=== PATIENT | female | born 1985 | race Caucasian/White ===

== ENCOUNTER 2023-01-08 22:55 | Inpatient (IN) | payer OTHER, SELFPAY ==
--- NOTE | ~2023-01-08 | XR_ITS ---
EXAMINATION: XR HAND, LEFT CLINICAL INFORMATION: Trauma, rule out foreign body COMPARISON: None available. TECHNIQUE: PA, lateral, and oblique views of the left hand. FINDINGS: The bones and soft tissues are normal. No fracture. Alignment is anatomic. Joint spaces are maintained. No erosions or soft tissue calcifications. XR/XR hand LT min 3V IMPRESSION: Normal left hand. No radiopaque foreign body.
[2023-01-08 23:15] VITALS: BP 162/96; PULSE 75; RESP 18; TEMP 36.3; O2SAT 97
[2023-01-09] MEDS: traZODone HCL 50 MG TABLET PO ×2 (00:25→01:47)
[2023-01-09] MEDS: cephALEXin 500 MG CAPSULE PO ×3 (00:26→17:55)
[2023-01-09] MEDS: hydrOXYzine HCL 25 MG TABLET PO (00:26)
[2023-01-09 00:53] LABS: Estimated Glomerular Filt Rate > 60
--- NOTE | 2023-01-09 01:05 | PC.ADMIT ---
PT is a 37 year old female admitted at 2310 from [facility] ED on CV. PT attempted to end her life by cutting her L wrist with a returned materials inspector knife resulting in a 6cm laceration with injury to tendons and nerves with 7 sutures. No redness or S/S of infection, with a volar splint and arnie bandage. PT placed on 5 minute checks due to bandage, PT denies SI/HI at this time. VSS, PT expressing mild anxiety and depression. PT according to report got really angry with her mom and had been drinking when she cut self. PT expresses guilt for cutting self. PT recently started drinking and had been sober for 13 years. PT reports she was on suboxone but has not taken in several days. PT BAL 151 upon admission to [facility], ALT 100, AST 60. PT reports increasing sadness and depression over past few weeks. PT has hx of HTN. PT signed legals, initial treatment plan and safety tool started. PT needs follow up apt with Dr Merlos of hand surgery within a week. PT is resting in bed with eyes closed on 5 minute safety checks.
[2023-01-09 01:43] VITALS: BMI 33.3
[2023-01-09] MEDS: Acetaminophen 325 MG TABLET 650 MG PO (06:57)
--- NOTE | 2023-01-09 08:00 | ECG_ITS ---
Test Reason : check qtc Blood Pressure : / mmHG Vent. Rate : 081 BPM Atrial Rate : 081 BPM P-R Int : 148 ms QRS Dur : 074 ms QT Int : 378 ms P-R-T Axes : 020 -22 003 degrees QTc Int : 439 ms Normal sinus rhythm Minimal voltage criteria for LVH, may be normal variant ( R in aVL ) Borderline ECG No previous ECGs available Referred By: Sola Cook Electronically Signed By:REINALDO REESE MD
[2023-01-09 08:38] LABS: Cholesterol 279 mg/dL; HDL Cholesterol 45 mg/dL; LDL Cholesterol Calculated 200 mg/dl; Magnesium 1.9 mg/dL (1.6-2.6); Triglycerides 174 mg/dL
[2023-01-09 08:45] LABS: Estimated Average Glucose 82 mg/dL; Hemoglobin A1c % 4.5 %
[2023-01-09 09:07] LABS: Folate 11.3 ng/mL (> or = 4.0); Free T4 (Free Thyroxine) 0.93 ng/dL (0.71-1.85); Thyroid Stimulating Hormone 1.42 uIU/mL (0.32-4.0); Vitamin B12 449 pg/mL (200-900)
[2023-01-09] MEDS: Nicotine Polacrilex Lozenge 4 MG LOZENGE BUCCAL (10:14)
[2023-01-09] MEDS: Nicotine 21 MG PATCH.TD24 TRANSDERMA (10:14)
[2023-01-09 12:55] VITALS: BP 154/86; RESP 16; TEMP 36.6
[2023-01-09] MEDS: Folic Acid 1 MG TABLET PO (12:57)
[2023-01-09] MEDS: amLODIPine Besylate 5 MG TABLET PO (12:57)
[2023-01-09] MEDS: Thiamine HCL 100 MG TABLET 50 MG PO (12:57)
[2023-01-09] MEDS: Labetalol HCL 100 MG TABLET PO (12:57)
[2023-01-09] MEDS: oxyCODONE HCl Immed Release 5 MG TABLET PO ×2 (12:58→15:26)
[2023-01-09] MEDS: TiZANidine HCL 4 MG TABLET PO ×3 (12:58→23:06)
--- NOTE | 2023-01-09 13:00 | HO.PSYADMNOT ---
Documented by User: Maria Del Rosario Nieves NP 01/09/23 16:21 HPI Date of Service: 01/09/23 Chief Complaint: Depression, Suicide attempt, alcohol use disorder Sources of Information: patient interviewed, chart reviewed and crisis/core team assessment reviewed HPI Subjective Notes: Angelo Warning and Conditional Voluntary Narrative: Patient is a 37 year old female who self presented to [facility] ED secondary to attempting to ending her life by cutting her wrists. According to the crisis report, she has a 6cm LAC on left wrist with injury to the tendon and nerve requiring 7 sutures. Per crisis evaluation, patient became upset with mother, stated she wanted to and took a knife then cut her left wrist. EMS was called. Patient expresses guilt about cutting herself and states she was intoxicated during the event and does not recall what occurred. Patient denies any current thoughts of self harm or suicidal ideation. Past Psychiatric History: This is the patients first inpatient behavioral health admission. Patient reports having providers at [facility]. She has received treatment in the past for ETOH and opiate use. Patient reports no history of past self harm or suicide attempts. [facility] Medical History (Updated 01/09/23 @ 16:21 by Tim Orellana MD) Alcohol use disorder MDD (major depressive disorder), recurrent episode Opioid use disorder Narrative: This is the patients first inpatient behavioral health admission. Patient reports having providers at [facility]. Patient states she has tried multiple medications but they are not helped my depression . Patient reports no history of past self harm or suicide attempts. Family History: No family history of mental illness. Social History: Lives with and 2 cats. Has not been working since 2018. Substance History: Rehab in 2010 for ETOH, Opiate use in 2021 for 2 months. Started drinking again 2 weeks ago. Trauma History: None Diagnostics Vital Signs (24Hr): Vital Signs - 24 hr 01/08/23 23:15 Temperature 97.4 F Pulse Rate 75 Respiratory Rate 18 Blood Pressure 162/96 H Pulse Oximetry 97 Oxygen Delivery Method Room Air BMI result Body Mass Index 33.3 Labs 01/09/23 00:14 Labs: Laboratory Results - last 48 hr 01/09/23 01/09/23 01/09/23 00:14 08:02 08:02 Creatinine 0.82 Estim Creat Clear Calc TNP Estimated GFR > 60 Estimat Average Glucose 82 Hemoglobin A1c % 4.5 Magnesium 1.9 Triglycerides 174 Cholesterol 279 LDL Cholesterol, Calc 200 HDL Cholesterol 45 Vitamin B12 449 Folate 11.3 TSH 1.42 Free T4 0.93 EKG EKG: reviewed Meds/Allergies Meds Home Medications Medication Instructions Recorded Confirmed Type amlodipine 5 mg tablet 5 mg PO DAILY 01/09/23 01/09/23 History escitalopram oxalate 20 mg tablet 20 mg PO QAM 01/09/23 01/09/23 History hydromorphone 2 mg tablet 2 mg PO Q8H PRN pain 01/09/23 01/09/23 History labetalol 100 mg tablet 100 mg PO BID 01/09/23 01/09/23 History lorazepam 0.5 mg tablet 0.5 mg PO BID PRN Anxiety 01/09/23 01/09/23 History tizanidine 4 mg tablet 4 mg PO TID 01/09/23 01/09/23 History Allergies Allergies Allergy/AdvReac Type Severity Reaction Status Date / Time baclofen Allergy Unknown Unknown Verified 01/08/23 17:27 Sulfa (Sulfonamide Allergy Unknown Unknown Verified 01/08/23 17:27 Antibiotics) trimethoprim Allergy Unknown Unknown Verified 01/08/23 17:27 amoxicillin Allergy Unknown Unknown Uncoded 01/08/23 17:27 pcn Allergy Unknown Unknown Uncoded 01/08/23 17:27 Mental Status Exam Mental Status Exam Narrative: Pt is alert and oriented; behavior is cooperative, friendly and calm; patient is not in distress; dressed in casual attire; mood is described as okay and affect congruent; eye contact appropriate; Speech is normal rate, volume and prosody and not pressured; no psychomotor agitation/retardation present; thought process is organized and goal directed; Thought content is on tx; otherwise pertinent to relevant topics and without any delusional content, paranoid ideations or grandiosity; denies any SI/HI. There is no evidence of perceptual disturbance. Patients insight and judgment appear fair. Assessment & Plan Assessment & Plan (1) MDD (major depressive disorder), recurrent episode: Status: Acute Code(s): F33.9 - Major depressive disorder, recurrent, unspecified (2) Alcohol use disorder: Status: Acute Code(s): F10.90 - Alcohol use, unspecified, uncomplicated (3) Opioid use disorder: Status: Acute Code(s): F11.90 - Opioid use, unspecified, uncomplicated (4) Laceration of wrist, left: Status: Acute Code(s): S61.512A - Laceration without foreign body of left wrist, initial encounter Plan CV 5 min checks d/t bandage on left arm STARTing CIWA Thiamine 50mg PO daily Folic acid 1mg PO daily Consult put in for Orthopedics to examine left wrist. Tylenol 1000mg PO TID PRN for pain Oxycodone IR PO Q6hr PRN for pain Continue home medications: Norvasc 5mg PO daily Zanaflex 4mg PO TID Labetalol 100mg PO BID Ativan 0.5mg PO BID PRN Lexapro 20mg PO daily 01/09: Reviewed in team. Continued on home medications. Patient reports her outpatient provider had just started her on Lexapro 20mg daily. Patient to be seen for orthopedic consult. Patient educated on: medication risk/benefits and therapeutic strategies Informed Consent: understands Reason for continued inpatient stay Substantial Risk for: harm to self and med/psych decompensation Statement Statement: I have reviewed the history and physical and performed a pertinent examination on my patient. No changes have occurred unless specified. If the History and Physical was not performed prior to admission, the Hospitalist's service will be consulted for completing the admission physical. Time Spent With Patient Time: Total time managing care of this patient today ____ minutes. Documented by User: Tim Orellana MD 01/09/23 16:41 HPI Chief Complaint: Depression, Suicide attempt, alcohol use disorder HPI Narrative: Patient is a 37 year old female with a pmh of depression, alcohol abuse/dependence, opioid abuse/dependence (on Suboxone) who presented to [facility] ED following self-inflicted, severe left wrist laceration in face of intoxication, argument with mother, and in the context of making suicidal statements (per mother).? Patient reports reports she overall has a moderate level of depression but typically is able to cope; most medication trials have not helped.? Patient reports she has been sober for the past 12 years but relapsed 2 weeks ago out of boredom and continued chronic moderate depression.? Patient says she does not remember many details about the incident other than she was arguing with her mother and that she cut her wrist; at this time she does not remember having any suicidal thoughts or or making any suicidal comments.? However she says she regrets doing it and is glad that she is okay.? Conversely, at the emergency room, her mother reported that patient intentionally cut her wrist saying God does not want me here... God wanted me to go I want to go to my [] father... Patient denies any history of manic type episodes or behaviors other than intermittent bouts of insomnia (but without any associated manic behaviors); patient denies any history of trauma; denies any past history of self-harm at all or suicidal thinking.? She is open to medication management. Past Psychiatric History: This is the patients first inpatient behavioral health admission. Patient reports having providers at [facility]. She has received treatment in the past for ETOH and opiate use. Patient reports no history of past self harm or suicide attempts. Med trials: Wellbutrin Lamictal Zoloft Trazodone Geodon Topamax Medical Evaluation Reviewed: Hospitalist Fede Pending Per [facility] ED, she has a 6cm LAC on left wrist with injury to the tendon and nerve requiring 7 sutures. [facility] Medical History (Updated 01/09/23 @ 16:21 by Tim Orellana MD) Alcohol use disorder MDD (major depressive disorder), recurrent episode Opioid use disorder Diagnostics Labs 01/09/23 00:14 Meds/Allergies Meds Home Medications Medication Instructions Recorded Confirmed Type amlodipine 5 mg tablet 5 mg PO DAILY 01/09/23 01/09/23 History escitalopram oxalate 20 mg tablet 20 mg PO QAM 01/09/23 01/09/23 History hydromorphone 2 mg tablet 2 mg PO Q8H PRN pain 01/09/23 01/09/23 History labetalol 100 mg tablet 100 mg PO BID 01/09/23 01/09/23 History lorazepam 0.5 mg tablet 0.5 mg PO BID PRN Anxiety 01/09/23 01/09/23 History tizanidine 4 mg tablet 4 mg PO TID 01/09/23 01/09/23 History Allergies Allergies Allergy/AdvReac Type Severity Reaction Status Date / Time baclofen Allergy Unknown Unknown Verified 01/08/23 17:27 Sulfa (Sulfonamide Allergy Unknown Unknown Verified 01/08/23 17:27 Antibiotics) trimethoprim Allergy Unknown Unknown Verified 01/08/23 17:27 amoxicillin Allergy Unknown Unknown Uncoded 01/08/23 17:27 pcn Allergy Unknown Unknown Uncoded 01/08/23 17:27 Mental Status Exam Mental Status Exam Narrative: Pt is alert and oriented; behavior is cooperative, friendly and calm; patient is not in distress; dressed in casual attire; mood is described as okay and affect congruent; eye contact appropriate; Speech is normal rate, volume and prosody and not pressured; no psychomotor agitation/retardation present; thought process is organized and goal directed; Thought content is on tx; otherwise pertinent to relevant topics and without any delusional content, paranoid ideations or grandiosity; denies any SI/HI. There is no evidence of perceptual disturbance. Patients insight and judgment impaired. Assessment & Plan Assessment & Plan (1) MDD (major depressive disorder), recurrent episode: Status: Acute Code(s): F33.9 - Major depressive disorder, recurrent, unspecified (2) Alcohol use disorder: Status: Acute Code(s): F10.90 - Alcohol use, unspecified, uncomplicated (3) Opioid use disorder: Status: Acute Code(s): F11.90 - Opioid use, unspecified, uncomplicated (4) Laceration of wrist, left: Status: Acute Code(s): S61.512A - Laceration without foreign body of left wrist, initial encounter Plan Patient is a 37 year old female with a pmh of depression, alcohol abuse/dependence, opioid abuse/dependence (on Suboxone) who presented to [facility] ED following self-inflicted, severe left wrist laceration in face of intoxication, argument with mother, and in the context of making suicidal statements (per mother).? -patient currently denies any SI; reports she does not remember making any suicidal comments or that she was severely depressed or suicidal prior to this event. Patient's mother says otherwise that patient made a distinct suicidal, before cutting her wrist. At this time will need collateral to better assess situation including clarifying psych history and diagnosis (was once diagnosed with bipolar disorder though currently patient denies such history). Patient gave verbal permission to discuss case with her and mother; voicemail left for . -at this time will continue with home medication recently started Lexapro -CIWA for EtOH withdrawal -patient was until recently on Suboxone 8/2 mg daily; was planning to get Sublicade since patient is now getting oxycodone for pain will not restart Suboxone at this time. May however taper off oxy and restart Suboxone PLAN: CV 5 min checks d/t bandage on left arm CIWA with prn ativan Thiamine 50mg PO daily Folic acid 1mg PO daily Continue home medications: Norvasc 5mg PO daily Zanaflex 4mg PO TID Labetalol 100mg PO BID Ativan 0.5mg PO BID PRN Lexapro 20mg PO daily (recently started) HOLD suboxone 8/2mg (pt currently treated with Oxy) Left Hand Lac: Per [facility] ED, she has a 6cm LAC on left wrist with injury to the tendon and nerve requiring 7 sutures. Pt continued on Keflex 500 mg q.6 3 to of 5 days prophylactically Patient has follow-up appointment with Dr. Mittal next week Tylenol 1000mg PO TID PRN for pain Oxycodone IR PO Q6hr PRN for pain ortho consulted placed ECG again reviewed labs from [facility] ED: WBC mildly elevated; otherwise, lytes, BUN/creatinine, AST/ALT WNL QTC: [address] [employer] Nurse discussed case with community health nursing director. and agree with treatment plan
--- NOTE | 2023-01-09 13:37 | PM.CNOR ---
History of Present Illness HPI Consult date: 01/09/23 Chief complaint: Depression, Suicide attempt, alcohol use disorder Narrative: 37 yo female admitted to the behavioral health unit due to self harm from cutting her wrist 3-4 days ago in an attempt to end her life. She states she was transported to [facility] ED for evaluation where the laceration was irrigated and sutured. She was placed in a splint . She was transferredt [facility] ED for admission to the psych unit and orthopedics was consulted for further recommendations to the left wrist laceration. Review of Systems Review of Systems: Per hpi. [facility] Social History Social History Household Members: Spouse Housing: Other Housing Other:: Duplex Patient Tobacco Use Status: Current everyday Tobacco user Tobacco use type: Cigarette e-Cigarette/Vaping Use: Currently Using Patient Interested in Nicotine Replacement: Yes Patient Given Instructions on How to Stop Smoking: No (PT refusing) Second Hand Smoke Exposure: No Use of substances other than those prescribed or required for medical reasons: No Last Used Substance: Unknown Currently Displaying Signs/Symptoms of Drug Intoxication Withdrawal: No Have you been hit, kicked, punched, or otherwise hurt by someone within the past year? If so, by whom?: No Do you feel safe in your current relationship?: Yes Is there a partner from a previous relationship who is making you feel unsafe now?: No Are you made to feel afraid or neglected: No Spiritual Healthcare Practices: Confucianist Orthodoxy Healthcare Practices: Confucianist Cultural Healthcare Practices: NONE Advance Directives: No Advance Directives Information Provided: Yes Do you have thoughts of harming others: None Do you have a plan to hurt others: No Plan Recently lost weight without trying: Unsure How much weight loss: Unsure Eating poorly because of decreased appetite: Yes Nutrition screen score: 5 Patient : No : No Poor oral hygiene: No Meds Allergies Allergy/AdvReac Type Severity Reaction Status Date / Time baclofen Allergy Unknown Unknown Verified 01/08/23 17:27 Sulfa (Sulfonamide Allergy Unknown Unknown Verified 01/08/23 17:27 Antibiotics) trimethoprim Allergy Unknown Unknown Verified 01/08/23 17:27 amoxicillin Allergy Unknown Unknown Uncoded 01/08/23 17:27 pcn Allergy Unknown Unknown Uncoded 01/08/23 17:27 Active Medications: Current Medications Acetaminophen (Acetaminophen 325 Mg Tablet) 650 mg PO Q6H PRN PRN Reason: Headache/Pain Mild Scale (1-3) Last Admin: 01/09/23 06:57 Dose: 650 mg Al Hydroxide/Mg Hydroxide (Magnesium Hydrox/Alum Hydrox 30 Ml Oral.Susp) 30 ml PO Q6H PRN PRN Reason: Heartburn/Nausea Amlodipine Besylate (Amlodipine Besylate 5 Mg Tablet) 5 mg PO DAILY [facility]; Protocol Last Admin: 01/09/23 12:57 Dose: 5 mg Cephalexin HCl (Cephalexin 500 Mg Capsule) 500 mg PO Q6H [facility] Last Admin: 01/09/23 13:00 Dose: Not Given Folic Acid (Folic Acid 1 Mg Tablet) 1 mg PO DAILY [facility] Last Admin: 01/09/23 12:57 Dose: 1 mg Hydroxyzine HCl (Hydroxyzine Hcl 25 Mg Tablet) 25 mg PO Q6H PRN PRN Reason: Anxiety Last Admin: 01/09/23 00:26 Dose: 25 mg Labetalol HCl (Labetalol Hcl 100 Mg Tablet) 100 mg PO BID [facility]; Protocol Last Admin: 01/09/23 12:57 Dose: 100 mg Lorazepam (Lorazepam 0.5 Mg Tablet) 0.5 mg PO BID PRN PRN Reason: Anxiety Magnesium Hydroxide (Milk Of Magnesia 30 Ml Oral.Susp) 30 ml PO DAILY PRN PRN Reason: Constipation Nicotine (Nicotine 21 Mg Patch.Td24) 21 mg TRANSDERMA DAILY [facility] Last Admin: 01/09/23 10:14 Dose: 21 mg Nicotine Polacrilex (Nicotine Polacrilex Lozenge 4 Mg Lozenge) 4 mg BUCCAL Q2H PRN PRN Reason: nicotine replacement Last Admin: 01/09/23 10:14 Dose: 4 mg Thiamine HCl (Thiamine Hcl 100 Mg Tablet) 50 mg PO DAILY [facility] Last Admin: 01/09/23 12:57 Dose: 50 mg Tizanidine HCl (Tizanidine Hcl 4 Mg Tablet) 4 mg PO TID [facility] Last Admin: 01/09/23 12:58 Dose: 4 mg Trazodone HCl (Trazodone Hcl 50 Mg Tablet) 50 mg PO BEDTIME MRX1 PRN PRN Reason: Insomnia Last Admin: 01/09/23 01:47 Dose: 50 mg Home Medications Medication Instructions Recorded Confirmed Last Taken Type amlodipine 5 mg tablet 5 mg PO DAILY 01/09/23 01/09/23 01/08/23 09:00 History escitalopram oxalate 20 mg tablet 20 mg PO QAM 01/09/23 01/09/23 01/08/23 09:00 History hydromorphone 2 mg tablet 2 mg PO Q8H PRN pain 01/09/23 01/09/23 01/08/23 23:00 History labetalol 100 mg tablet 100 mg PO BID 01/09/23 01/09/23 01/08/23 22:00 History lorazepam 0.5 mg tablet 0.5 mg PO BID PRN Anxiety 01/09/23 01/09/23 01/08/23 22:00 History tizanidine 4 mg tablet 4 mg PO TID 01/09/23 01/09/23 01/08/23 22:00 History Physical Exam Vital Signs: Vital Signs: Last Vital Signs Temp 97.4 F 01/08/23 23:15 Pulse 75 01/08/23 23:15 Resp 18 01/08/23 23:15 BP 162/96 H 01/08/23 23:15 Pulse Ox 97 01/08/23 23:15 O2 Del Method Room Air 01/08/23 23:15 BMI result Body Mass Index 33.3 Const: General: cooperative and no acute distress Orientation/consciousness: patient oriented x3 Resp: Effort & Inspection: normal respiratory effort and able to speak in complete sentences Cardio: Peripheral pulses: Peripheral pulses 2+ throughout Neuro: General: patient oriented x3 Results Labs 01/09/23 00:14 Labs: All other labs normal. Diagnostic results Wrist/Hand x-ray: image reviewed (xray of the left wrist/hand obtained today are negative for fracture or foreign body ) Assessment and Plan (1) Laceration of wrist, left: Status: Acute Plan I reviewed the case with Dr. Gillespie and this is something that would require surgical intervention to explore and repair. I explained the extent of the injury and options to the patient which includes exploration and possible repair of the left wrist median nerve and if there is injury to the tendons, this will need to be addressed as well. I did explain to her that this takes anywhere from 6-12 weeks to full recover from this as there needs to be a period of immobilization and then some potential physical therapy. I discussed with her the risks, benefits and alternatives to the procedure. Risks including, but not limited to infection, re-rupture of the tendon, stiffness, ongoing weakness and numbness. She does understand all this and would like to proceed with Left wrist exploration with possible nerve and tendon repair with Dr. Gillespie. She will be booked accordingly for 01/13/23, NPO after midnight Thursday. Time Spent With Patient Time: Total time managing care of this patient today ____ minutes. Procedures Date of Service Date of Service: 01/09/23
[2023-01-09] MEDS: LORazepam 0.5 MG TABLET PO ×2 (13:42→17:55)
[2023-01-09] MEDS: Acetaminophen 325 MG TABLET 1000 MG PO (15:26)
[2023-01-09] MEDS: Escitalopram Oxalate 20 MG TABLET PO (15:27)
--- NOTE | 2023-01-09 15:54 | P.CONHOSP_ITS ---
History of Present Illness Data of Consult Service Date: 01/09/23 <LINH Johansen - Last Filed: 01/10/23 14:10> Primary Care Provider: Darby Coon MD <LINH Johansen - Last Filed: 01/10/23 14:10> HPI Reason for consult: Admission H&P <LINH Johansen - Last Filed: 01/10/23 14:10> Pt is a 37-year-old female with a PMH significant for necrotizing pancr eatitis and abdominal compartment syndrome in 2011, cyclic vomiting syndrome, hepatic steatosis, depression, and alcohol and opioid use disorder who is admitted to psychiatry unit after recent suicide attempt where patient cut her left wrist with a knife after becoming upset with her mother. Medical consult for admission H&P. At [facility] patient had her left wrist laceration irrigated and sutured, and left wrist was placed in a volar splint. Patient has already been seen by ortho who plan on performing a surgical exploration on Thursday with possible repair to median nerve/tendon. Pt complains of severe 8/10 pain that is not well-controlled with her current analgesics. Patient has a history of cyclic vomiting syndrome with no history of marijuana use, likely secondary to patient's history of necrotizing pancreatitis and abdominal compartment syndrome. Patient states she currently gets intractable nausea and vomiting 2-3 times per month with last episode earlier in the week while she was at [facility]. Patient also complains of chronic left-sided abdominal pain that has been on-going for years. Patient denies fever, chills, nausea, vomiting, diarrhea. No chest pain/pressure, palpitations. Denies shortness of breath. <LINH Johansen - Last Filed: 01/10/23 14:10> Pt is a 37-year-old female with a PMH significant for necrotizing pancreatitis and abdominal compartment syndrome in 2011, cyclic vomiting syndrome, hepatic steatosis, depression, and alcohol and opioid use disorder who is admitted to psychiatry unit after recent suicide attempt where patient cut her left wrist with a knife after becoming upset with her mother. Medical consult for admission H&P. At [facility] patient had her left wrist laceration irrigated and sutured, and left wrist was placed in a volar splint. Patient has already been seen by ortho who plan on performing a surgical exploration on Thursday with possible repair to median nerve/tendon. Pt complains of severe 8/10 pain that is not well-controlled with her current analgesics. Patient has a history of cyclic vomiting syndrome with no history of marijuana use, likely secondary to patient's history of necrotizing pancreatitis and abdominal compartment syndrome in 2011. Patient states she currently gets intractable nausea and vomiting 2-3 times per month with last episode earlier in the week while she was at [facility]. Patient also complains of chronic left- sided abdominal pain that has been on-going for years. Patient denies fever, chills, nausea, vomiting, diarrhea. No chest pain/pressure, palpitations. Denies shortness of breath. <Emma Isbell MD - Last Filed: 01/10/23 14:35> Review of Systems Review of Systems: Severe left wrist pain Chronic left-sided abdominal pain Denies fever, chills, nausea, vomiting, diarrhea Denies chest pain/pressure, palpitations No shortness of breath <LINH Johansen - Last Filed: 01/10/23 14:10> Yes all other systems are reviewed and are negative <LINH Johansen - Last Filed: 01/10/23 14:10> [facility] Medical History: Medical History Alcohol use disorder MDD (major depressive disorder), recurrent episode Opioid use disorder Seizure <LINH Johansen - Last Filed: 01/10/23 14:10> Social History: Social History Household Members: Spouse Housing: Other Housing Other:: Duplex Patient Tobacco Use Status: Current everyday Tobacco user Tobacco use type: Cigarette e-Cigarette/Vaping Use: Currently Using Patient Interested in Nicotine Replacement: Yes Patient Given Instructions on How to Stop Smoking: No (PT refusing) Second Hand Smoke Exposure: No Use of substances other than those prescribed or required for medical reasons: No Last Used Substance: Unknown Currently Displaying Signs/Symptoms of Drug Intoxication Withdrawal: No Have you been hit, kicked, punched, or otherwise hurt by someone within the past year? If so, by whom?: No Do you feel safe in your current relationship?: Yes Is there a partner from a previous relationship who is making you feel unsafe now?: No Are you made to feel afraid or neglected: No Spiritual Healthcare Practices: Yazidism Voodoo Healthcare Practices: Yazidism Cultural Healthcare Practices: NONE Advance Directives: No Advance Directives Information Provided: Yes Do you have thoughts of harming others: None Do you have a plan to hurt others: No Plan Recently lost weight without trying: Unsure How much weight loss: Unsure Eating poorly because of decreased appetite: Yes Nutrition screen score: 5 Patient : No : No Poor oral hygiene: No service: No Sexual orientation: Straight/Heterosexual <LINH Johansen - Last Filed: 01/10/23 14:10> Meds Allergies/Adverse reactions: Allergies Allergy/AdvReac Type Severity Reaction Status Date / Time baclofen Allergy Unknown Unknown Verified 01/08/23 17:27 Sulfa (Sulfonamide Allergy Unknown Unknown Verified 01/08/23 17:27 Antibiotics) trimethoprim Allergy Unknown Unknown Verified 01/08/23 17:27 amoxicillin Allergy Unknown Unknown Uncoded 01/08/23 17:27 pcn Allergy Unknown Unknown Uncoded 01/08/23 17:27 <LINH Johansen - Last Filed: 01/10/23 14:10> Active Medications: Current Medications Acetaminophen (Acetaminophen 325 Mg Tablet) 1,000 mg PO TID PRN PRN Reason: Pain, Severe (Pain Scale 7-10) Last Admin: 01/09/23 15:26 Dose: 1,000 mg Al Hydroxide/Mg Hydroxide (Magnesium Hydrox/Alum Hydrox 30 Ml Oral.Susp) 30 ml PO Q6H PRN PRN Reason: Heartburn/Nausea Amlodipine Besylate (Amlodipine Besylate 5 Mg Tablet) 5 mg PO DAILY [facility]; Protocol Last Admin: 01/09/23 12:57 Dose: 5 mg Cephalexin HCl (Cephalexin 500 Mg Capsule) 500 mg PO Q6H MICHELLE Last Admin: 01/09/23 13:00 Dose: Not Given Escitalopram Oxalate (Escitalopram Oxalate 20 Mg Tablet) 20 mg PO DAILY [facility] Last Admin: 01/09/23 15:27 Dose: 20 mg Folic Acid (Folic Acid 1 Mg Tablet) 1 mg PO DAILY [facility] Last Admin: 01/09/23 12:57 Dose: 1 mg Hydroxyzine HCl (Hydroxyzine Hcl 25 Mg Tablet) 25 mg PO Q6H PRN PRN Reason: Anxiety Last Admin: 01/09/23 00:26 Dose: 25 mg Labetalol HCl (Labetalol Hcl 100 Mg Tablet) 100 mg PO BID [facility]; Protocol Last Admin: 01/09/23 12:57 Dose: 100 mg Lorazepam (Lorazepam 0.5 Mg Tablet) 0.5 mg PO BID PRN PRN Reason: Anxiety Last Admin: 01/09/23 13:42 Dose: 0.5 mg Magnesium Hydroxide (Milk Of Magnesia 30 Ml Oral.Susp) 30 ml PO DAILY PRN PRN Reason: Constipation Nicotine (Nicotine 21 Mg Patch.Td24) 21 mg TRANSDERMA DAILY [facility] Last Admin: 01/09/23 10:14 Dose: 21 mg Nicotine Polacrilex (Nicotine Polacrilex Lozenge 4 Mg Lozenge) 4 mg BUCCAL Q2H PRN PRN Reason: nicotine replacement Last Admin: 01/09/23 10:14 Dose: 4 mg Oxycodone HCl (Oxycodone Hcl Immed Release 5 Mg Tablet) 5 mg PO Q6H PRN PRN Reason: Pain, Severe (Pain Scale 7-10) Last Admin: 01/09/23 15:26 Dose: 5 mg Thiamine HCl (Thiamine Hcl 100 Mg Tablet) 50 mg PO DAILY [facility] Last Admin: 01/09/23 12:57 Dose: 50 mg Tizanidine HCl (Tizanidine Hcl 4 Mg Tablet) 4 mg PO TID [facility] Last Admin: 01/09/23 12:58 Dose: 4 mg Trazodone HCl (Trazodone Hcl 50 Mg Tablet) 50 mg PO BEDTIME MRX1 PRN PRN Reason: Insomnia Last Admin: 01/09/23 01:47 Dose: 50 mg Zolpidem Tartrate (Zolpidem Tartrate 5 Mg Tablet) 5 mg PO BEDTIME PRN PRN Reason: Insomnia <LINH Johansen - Last Filed: 01/10/23 14:10> Home medications: Home Medications Medication Instructions Recorded Confirmed Last Taken Type amlodipine 5 mg tablet 5 mg PO DAILY 01/09/23 01/09/23 01/08/23 09:00 History escitalopram oxalate 20 mg tablet 20 mg PO QAM 01/09/23 01/09/23 01/08/23 09:00 History hydromorphone 2 mg tablet 2 mg PO Q8H PRN pain 01/09/23 01/09/23 01/08/23 23:00 History labetalol 100 mg tablet 100 mg PO BID 01/09/23 01/09/23 01/08/23 22:00 History lorazepam 0.5 mg tablet 0.5 mg PO BID PRN Anxiety 01/09/23 01/09/23 01/08/23 22:00 History tizanidine 4 mg tablet 4 mg PO TID 01/09/23 01/09/23 01/08/23 22:00 History <LINH Johansen - Last Filed: 01/10/23 14:10> Physical Exam Vital Signs and Narrative: Vital Signs: Last Vital Signs Temp 98 F 01/09/23 12:55 Pulse 75 01/08/23 23:15 Resp 16 01/09/23 12:55 BP 154/86 H 01/09/23 12:55 Pulse Ox 97 01/08/23 23:15 O2 Del Method Room Air 01/08/23 23:15 BMI result Body Mass Index 33.3 <LINH Johansen - Last Filed: 01/10/23 14:10> Constitutional: Alert, in no acute distress. Mental Status: Oriented to person, place and time. Eyes: Pupils are equal, round, and reactive to light. Ear, Nose, and Throat: Oropharynx clear, mucous membranes moist. Ears and nose without deformities. Trachea midline. Respiratory: Clear to auscultation bilaterally. No wheezing, rales, or rhonchi. Cardiovascular: S1, S2 regular. No murmurs, rubs, or gallops. Gastrointestinal: Abdomen soft, non-tender, non-distended. Normal bowel sounds. Neurologic: Cranial nerves II-XII are grossly intact bilaterally. No focal neurological deficits. Moves all extremities spontaneously. 2/5 strength left upper extremity; 5/5 strength of right upper extremity and lower extremities bilaterally. Extremities: Volar splint on left wrist. No erythema noted of left hand. Psychiatric: Normal mood and affect. <LINH Johansen - Last Filed: 01/10/23 14:10> Results Labs CBC and Chem 7: 01/09/23 00:14 <LINH Johansen - Last Filed: 01/10/23 14:10> Labs: Laboratory Results - last 24 hr 01/09/23 01/09/23 01/09/23 00:14 08:02 08:02 Estim Creat Clear Calc TNP Estimated GFR > 60 Estimat Average Glucose 82 Hemoglobin A1c % 4.5 Magnesium 1.9 Triglycerides 174 Cholesterol 279 LDL Cholesterol, Calc 200 HDL Cholesterol 45 Vitamin B12 449 Folate 11.3 TSH 1.42 Free T4 0.93 <LINH Johansen - Last Filed: 01/10/23 14:10> Imaging Radiologist's Impressions: Impressions Hand X-Ray 01/09/23 12:56 IMPRESSION: Normal left hand. No radiopaque foreign body. <LINH Johansen - Last Filed: 01/10/23 14:10> Assessment and Plan (1) Routine history and physical examination of adult: Status: Acute <LINH Johansen - Last Filed: 01/10/23 14:10> Pt is a 37-year-old female with a PMH significant for necrotizing pancreatitis and abdominal compartment syndrome in 2011, cyclic vomiting syndrome, hepatic steatosis, depression, and alcohol and opioid use disorder who is admitted to [facility] psychiatry unit after recent suicide attempt where patient cut her left wrist with a knife after becoming upset with her mother. Medical consult for admission H&P. Mood disorder Plan as per Psychiatry Left wrist laceration Pt with 6 cm laceration on left wrist with injury to tendon and nerves, secondary to suicide attempt Was repaired at [facility] with 7 sutures Orthopedics has been consulted and patient has agreed to undergo exploratory surgery with possible repair on 01/13/2023 Plan as per Orthopedics Left wrist pain Pt states pain is an 8/10, not well controlled with current pain management Increase Oxy to 10 mg q.6, continue Tylenol 1000 mg t.i.d. Cyclic vomiting syndrome Patient with intractable nausea vomiting 2-3 times per month Likely secondary to necrotizing pancreatitis and abdominal compartment syndrome Currently not in acute exacerbation Continue ondansetron p.r.n. HTN Continue amlodipine, labetalol Thank you for allowing us to participate in the care of this patient. Signing off at this time. Please let us know if there are any acute complaints or questions. <LINH Johansen - Last Filed: 01/10/23 14:10> Pt is a 37-year-old female with a PMH significant for necrotizing pancreatitis and abdominal compartment syndrome in 2011, cyclic vomiting synd brenden, hepatic steatosis, depression, and alcohol and opioid use disorder who is admitted to [facility]ry unit after recent suicide attempt where patient cut her left wrist with a knife after becoming upset with her mother. Medical consult for admission H&P. Mood disorder Plan as per Psychiatry Left wrist laceration Pt with 6 cm laceration on left wrist with injury to tendon and nerves, secondary to suicide attempt Was repaired at [facility] with 7 sutures Orthopedics has been consulted and patient has agreed to undergo exploratory surgery with possible repair on 01/13/2023 Plan as per Orthopedics Left wrist pain Pt states pain is an 8/10, not well controlled with current pain management Increase Oxy to 10 mg q.6, continue Tylenol 1000 mg t.i.d. Cyclic vomiting syndrome Patient with intractable nausea vomiting 2-3 times per month currently asymptomatic , has ch symptoms Currently not in acute exacerbation Continue ondansetron p.r.n. HTN Continue amlodipine, labetalol Thank you for allowing us to participate in the care of this patient. Signing off at this time. Please let us know if there are any acute complaints or questions. <Emma Isbell MD - Last Filed: 01/10/23 14:35> Time Spent With Patient Time: Total time managing care of this patient today ____ minutes. <LINH Johansen - Last Filed: 01/10/23 14:10>
[2023-01-09 18:00] VITALS: BP 172/90; PULSE 87; TEMP 36.6
--- NOTE | 2023-01-09 19:59 | PM.EVENT ---
Event Note Date of Service: 01/09/23 Event Note: Attempted to see pt but unavailable d/t sleeping. Had received Ativan and oxycodone 1/2 hour prior to attempted interview and was unarousable. Will attempt to see pt again at a later time. Time Spent With Patient Time: Total time managing care of this patient today ____ minutes.
[2023-01-10] MEDS: cephALEXin 500 MG CAPSULE PO ×5 (00:05→22:25)
[2023-01-10] MEDS: Zolpidem Tartrate 5 MG TABLET PO ×2 (00:05→21:10)
[2023-01-10] MEDS: oxyCODONE HCl Immed Release 5 MG TABLET PO ×3 (00:05→11:34)
[2023-01-10] MEDS: Labetalol HCL 100 MG TABLET PO ×3 (00:07→21:02)
[2023-01-10 08:11] VITALS: BP 167/87; PULSE 77; RESP 14; TEMP 36.4
[2023-01-10] MEDS: Nicotine 21 MG PATCH.TD24 TRANSDERMA (08:12)
[2023-01-10] MEDS: TiZANidine HCL 4 MG TABLET PO ×3 (08:12→16:42)
[2023-01-10] MEDS: Folic Acid 1 MG TABLET PO (08:12)
[2023-01-10] MEDS: amLODIPine Besylate 5 MG TABLET PO (08:12)
[2023-01-10] MEDS: Thiamine HCL 100 MG TABLET 50 MG PO (08:13)
[2023-01-10] MEDS: Escitalopram Oxalate 20 MG TABLET PO (08:13)
[2023-01-10] MEDS: LORazepam 0.5 MG TABLET PO ×2 (08:13→11:30)
--- NOTE | 2023-01-10 09:44 | P.PNPSI_ITS ---
Subjective Subjective Date of Service: 01/10/23 Reason For Visit: Depression, Suicide attempt, alcohol use disorder Interim History: Met with patient; discussed with team Patient reports she is feeling better; still depressed still embarrassed about recent incident however she remains clear that this was in no way a suicide attempt and that she was not and never has been suicidal. Patient shared history with keno writer in detail leading up to the event. History: -Severe alcoholism for years up until -2010, patient diagnosed with juvenile myoclonic epilepsy and treated with Topamax; due to possible side effect (blurry vision, confusion) patient switched to Depakote November 2022 - patient developed alcoholic necrotizing pancreatitis and abdominal compartment syndrome requiring abdominal surgery. She was sober from alcohol for the next 12 yrs until this current relapse -Patient under care of psychiatric provider Kymberly Olsen at [facility]; multiple medication trials with no relief for depression -2018 those sober, patient developed severe GI pain that was intermittent; she had biopsy which was unremarkable and there was no other etiology other than possible complication from adhesions -Spring 2021 patient discharged from [facility]; patient reports that provider concerned that patient's case was too complicated -Summer 2021, off meds, with worsening depression and access to the wrong person/wrong time, patient tried heroin for the 1st time in her life and used it for 2 months; got sober and on Suboxone; patient remained sober and after months on Suboxone (frustrated that she had now been on Suboxone longer than she had abused opiates), started working with provider to taper and eventually discontinue (plan was to use Sublicade for help with taper). -November- December 2022 patient remained very depressed (though denies SI at all); also with considerable trouble sleeping (though no manic symptoms at all); to treat depression and insomnia patient started to re-use alcohol little by little, sneaking it; however this developed into full-blown alcohol relapse about 2 weeks ago. For the past 4 weeks while drinking patient completely stopped taking Suboxone and other medications (she had been just started on Lexapro but had barely taking it anyway). -[facility] admission: relapse with alcoholism prompted abdominal upset (from history of abdominal surgery) and patient went to [facility] for 5 days and detoxed and got dilaudid for abdominal pain. On discharge patient started drinking again current incident: -Discharged from [facility] pt started drinking again. Patient remained depressed; while intoxicated she got into a verbal altercation with her mother. Patient says that she and mother are very close and her mother is very supportive however when they argue, they both get out of control and say all kinds of things. Patient's mother was saying many very angry and critical things to her daughter knowing how to push [her] buttons. Patient said in a moment of anger, wanting to hurt her mother she cut her arm; she remains very fuzzy on the details but considers it possible she said something about suicide knowing that it would hurt her mother's feelings and that cutting her arm in front of her mother would upset her. Patient remains adamant that she in no way meant to cut herself so severely and remembers being shocked when looking down at her arm and the blood; she also continues to adamantly deny that this was in any way an actual suicide attempt or that she had any suicidal ideation at all leading up to this event Other pertinent information: Patient has tried ketamine going once a month for a few months which she found helpful but too expensive. She reports Wellbutrin 150 mg was partially helping however her outpatient provider refused to increase it. In summary patient has been off Suboxone for the past month which was her goal anyway; thus it will not be restarted at this time. [employer] discussed risks of being off this medication which she understands even in the context of using opioids for pain relief from her left wrist laceration. Patient wants to get back on Wellbutrin and have it titrated to a higher dose. [employer] discussed the risks of this medication including lowering the seizure threshold and that it is unclear if current Depakote dose will be adequate to prevent seizures. Patient weighed risks/benefits and feels that the potential benefit of relief from depression is worth risk of breakthrough seizures (of note, Lexapro, Zoloft, Geodon which patient has taken, all carry similar risk for lowering seizure threshold which she has tolerated without incident). Patient agrees she needs to engage in therapy. Patient acknowledged she did take a small portion of Suboxone 8/2 mg strips this past week since she was told having Suboxone in her system was criteria for getting on to Sublicade (which was scheduled to be started to help taper patient off suboxone). -keno writer further reviewed history for bipolar, manic episodes or behaviors per patient report she has not had any manic behaviors or episodes. Diagnostics Vital Signs (24Hr): Vital Signs - 24 hr 01/09/23 12:55 01/09/23 18:00 01/10/23 08:11 Temperature 98 F 98 F 97.6 F Pulse Rate 87 77 Respiratory Rate 16 14 Blood Pressure 154/86 H 172/90 H 167/87 H BMI result Body Mass Index 33.3 Labs 01/09/23 00:14 Labs: Laboratory Results - last 48 hr 01/09/23 01/09/23 01/09/23 00:14 08:02 08:02 Creatinine 0.82 Estim Creat Clear Calc TNP Estimated GFR > 60 Estimat Average Glucose 82 Hemoglobin A1c % 4.5 Magnesium 1.9 Triglycerides 174 Cholesterol 279 LDL Cholesterol, Calc 200 HDL Cholesterol 45 Vitamin B12 449 Folate 11.3 TSH 1.42 Free T4 0.93 Imaging Radiology Impressions: ITS Impressions Hand X-Ray 01/09/23 12:56 IMPRESSION: Normal left hand. No radiopaque foreign body. Medications Medications Current Medications Acetaminophen (Acetaminophen 325 Mg Tablet) 1,000 mg PO TID PRN PRN Reason: Pain, Severe (Pain Scale 7-10) Last Admin: 01/09/23 15:26 Dose: 1,000 mg Al Hydroxide/Mg Hydroxide (Magnesium Hydrox/Alum Hydrox 30 Ml Oral.Susp) 30 ml PO Q6H PRN PRN Reason: Heartburn/Nausea Amlodipine Besylate (Amlodipine Besylate 5 Mg Tablet) 5 mg PO DAILY [facility]; Protocol Last Admin: 01/10/23 08:12 Dose: 5 mg Cephalexin HCl (Cephalexin 500 Mg Capsule) 500 mg PO Q6H MICHELLE Last Admin: 01/10/23 05:41 Dose: 500 mg Escitalopram Oxalate (Escitalopram Oxalate 20 Mg Tablet) 20 mg PO DAILY MICHELLE Last Admin: 01/10/23 08:13 Dose: 20 mg Folic Acid (Folic Acid 1 Mg Tablet) 1 mg PO DAILY MICHELLE Last Admin: 01/10/23 08:12 Dose: 1 mg Hydroxyzine HCl (Hydroxyzine Hcl 25 Mg Tablet) 25 mg PO Q6H PRN PRN Reason: Anxiety Last Admin: 01/09/23 00:26 Dose: 25 mg Labetalol HCl (Labetalol Hcl 100 Mg Tablet) 100 mg PO BID [facility]; Protocol Last Admin: 01/10/23 08:21 Dose: 100 mg Lorazepam (Lorazepam 0.5 Mg Tablet) 0.5 mg PO BID PRN PRN Reason: Anxiety Last Admin: 01/10/23 08:13 Dose: 0.5 mg Lorazepam (Lorazepam 1 Mg Tablet) 2 mg PO Q2H PRN PRN Reason: CIWA 11 and above Lorazepam (Lorazepam 1 Mg Tablet) 1 mg PO Q2H PRN PRN Reason: CIWA 6-10 Magnesium Hydroxide (Milk Of Magnesia 30 Ml Oral.Susp) 30 ml PO DAILY PRN PRN Reason: Constipation Nicotine (Nicotine 21 Mg Patch.Td24) 21 mg TRANSDERMA DAILY [facility] Last Admin: 01/10/23 08:12 Dose: 21 mg Nicotine Polacrilex (Nicotine Polacrilex Lozenge 4 Mg Lozenge) 4 mg BUCCAL Q2H PRN PRN Reason: nicotine replacement Last Admin: 01/09/23 10:14 Dose: 4 mg Oxycodone HCl (Oxycodone Hcl Immed Release 5 Mg Tablet) 5 mg PO Q6H PRN PRN Reason: Pain, Severe (Pain Scale 7-10) Last Admin: 01/10/23 05:41 Dose: 5 mg Thiamine HCl (Thiamine Hcl 100 Mg Tablet) 50 mg PO DAILY [facility] Last Admin: 01/10/23 08:13 Dose: 50 mg Tizanidine HCl (Tizanidine Hcl 4 Mg Tablet) 4 mg PO TID [facility] Last Admin: 01/10/23 08:12 Dose: 4 mg Trazodone HCl (Trazodone Hcl 50 Mg Tablet) 50 mg PO BEDTIME MRX1 PRN PRN Reason: Insomnia Last Admin: 01/09/23 01:47 Dose: 50 mg Zolpidem Tartrate (Zolpidem Tartrate 5 Mg Tablet) 5 mg PO BEDTIME PRN PRN Reason: Insomnia Last Admin: 01/10/23 00:05 Dose: 5 mg Allergies Allergies Allergy/AdvReac Type Severity Reaction Status Date / Time baclofen Allergy Unknown Unknown Verified 01/08/23 17:27 Sulfa (Sulfonamide Allergy Unknown Unknown Verified 01/08/23 17:27 Antibiotics) trimethoprim Allergy Unknown Unknown Verified 01/08/23 17:27 amoxicillin Allergy Unknown Unknown Uncoded 01/08/23 17:27 pcn Allergy Unknown Unknown Uncoded 01/08/23 17:27 Assessment & Plan Assessment & Plan (1) MDD (major depressive disorder), recurrent episode: Status: Acute Code(s): F33.9 - Major depressive disorder, recurrent, unspecified (2) Alcohol use disorder: Status: Acute Code(s): F10.90 - Alcohol use, unspecified, uncomplicated (3) Opioid use disorder: Status: Acute Code(s): F11.90 - Opioid use, unspecified, uncomplicated (4) Laceration of wrist, left: Status: Acute Code(s): S61.512A - Laceration without foreign body of left wrist, initial encounter (5) Seizure: Status: Acute Code(s): R56.9 - Unspecified convulsions Assessment and Plan: jeuvenile myoclonic epilpesy Plan Patient is a 37 year old female with a pmh of depression, alcohol abuse/dependence, opioid abuse/dependence (on Suboxone) who presented to [facility] ED following self-inflicted, severe left wrist laceration in face of intoxication, argument with mother, and in the context of making suicidal statements (per mother).? -patient currently denies any SI; reports she does not remember making any suicidal comments or that she was severely depressed or suicidal prior to this event. Patient's mother says otherwise that patient made a distinct suicidal, before cutting her wrist. At this time will need collateral to better assess situation including clarifying psych history and diagnosis (was once diagnosed with bipolar disorder though currently patient denies such history). Patient gave verbal permission to discuss case with her and mother; voicemail left for . -at this time will continue with home medication recently started Lexapro -CIWA for EtOH withdrawal -patient was until recently on Suboxone 8/2 mg daily; was planning to get Sublicade since patient is now getting oxycodone for pain will not restart Suboxone at this time. May however taper off oxy and restart Suboxone Hospital course: 01/10 patient reports she is doing okay; still depressed but feeling better than on admission; remains without any SI; shared history. See below: History expanded: -Severe alcoholism for years up until , patient diagnosed with juvenile myoclonic epilepsy and treated with Topamax; due to possible side effect (blurry vision, confusion) patient switched to Depakote November 2022 - patient developed alcoholic necrotizing pancreatitis and abdominal compartment syndrome requiring abdominal surgery. She was sober from alcohol for the next 12 yrs until this current relapse -Patient under care of psychiatric provider Kymberly Olsen at [facility]; multiple medication trials with no relief for depression -2018 those sober, patient developed severe GI pain that was intermittent; she had biopsy which was unremarkable and there was no other etiology other than possible complication from adhesions -Spring 2021 patient discharged from [facility]; patient reports that provider concerned that patient's case was too complicated -Summer 2021, off meds, with worsening depression and access to the wrong person/wrong time, patient tried heroin for the 1st time in her life and used it for 2 months; got sober and on Suboxone; patient remained sober and after months on Suboxone (frustrated that she had now been on Suboxone longer than she had abused opiates), started working with provider to taper and eventually discontinue (plan was to use Sublicade for help with taper). -November- December 2022 patient remained very depressed (though denies SI at all); also with considerable trouble sleeping (though no manic symptoms at all); to treat depression and insomnia patient started to re-use alcohol little by little, sneaking it; however this developed into full-blown alcohol relapse about 2 weeks ago. For the past 4 weeks while drinking patient completely stopped taking Suboxone and other medications (she had been just started on Lexapro but had barely taking it anyway). -[facility] admission: relapse with alcoholism prompted abdominal upset (from history of abdominal surgery) and patient went to [facility] for 5 days and detoxed and got dilaudid for abdominal pain. On discharge patient started drinking again current incident: -Discharged from [facility] pt started drinking again. Patient remained depressed; while intoxicated she got into a verbal altercation with her mother. Patient says that she and mother are very close and her mother is very supportive however when they argue, they both get out of control and say all kinds of things. Patient's mother was saying many very angry and critical things to her daughter knowing how to push [her] buttons. Patient said in a moment of anger, wanting to hurt her mother she cut her arm; she remains very fuzzy on the details but considers it possible she said something about suicide knowing that it would hurt her mother's feelings and that cutting her arm in front of her mother would upset her. Patient remains adamant that she in no way meant to cut herself so severely and remembers being shocked when looking down at her arm and the blood; she also continues to adamantly deny that this was in any way an actual suicide attempt or that she had any suicidal ideation at all leading up to this event Other pertinent information: Patient has tried ketamine going once a month for a few months which she found helpful but too expensive. She reports Wellbutrin 150 mg was partially helping however her outpatient provider refused to increase it. In summary patient has been off Suboxone for the past month which was her goal anyway; thus it will not be restarted at this time. [employer] discussed risks of being off this medication which she understands even in the context of using opioids for pain relief from her left wrist laceration. Patient wants to get back on Wellbutrin and have it titrated to a higher dose. [employer] discussed the risks of this medication including lowering the seizure threshold and that it is unclear if current Depakote dose will be adequate to prevent seizures. Patient weighed risks/benefits and feels that the potential benefit of relief from depression is worth risk of breakthrough seizures (of note, Lexapro, Zoloft, Geodon which patient has taken, all carry similar risk for lowering seizure threshold which she has tolerated without incident). Patient agrees she needs to engage in therapy. Patient acknowledged she did take a small portion of Suboxone 8/2 mg strips this past week since she was told having Suboxone in her system was criteria for getting on to Sublicade (which was scheduled to be started to help taper patient off suboxone). -keno writer further reviewed history for bipolar, manic episodes or behaviors per patient report she has not had any manic behaviors or episodes. SUMMARY: Will gather collateral from ; however given history and patient's report, she does not appear to be in imminent risk for harm to self or others. She is scheduled for hand surgery next Thursday. At this time, unless collateral provided causes concern, will likely be able to proceed with discharge plans for patient to attend surgery. PLAN: CV Q 15 minute checks Will start Wellbutrin XL 150 mg daily for depression; patient said has partial helped in the past; keno writer reviewed risks and she feels that benefits outweigh risks DC CIWA (patient detoxed at [facility]; since discharge patient has only been drinking for 2 days prior to this admission) will likely restart stimulant at pt request Norvasc 5mg PO daily Zanaflex 4mg PO TID Labetalol 100mg PO BID Ativan 0.5mg PO BID PRN Discontinue Lexapro patient had been recently started on it but has hardly been taking DC Suboxone Left Hand Lac: Per [facility] ED, she has a 6cm LAC on left wrist with injury to the tendon and nerve requiring 7 sutures. Pt continued on Keflex 500 mg q.6 3 to of 5 days prophylactically Patient has follow-up appointment with Dr. Mittal next week Tylenol 1000mg PO TID PRN for pain Added ibuprofen for breakthrough pain Oxycodone increased to 10 mg IR PO Q6hr PRN for pain ortho consulted placed ECG again reviewed labs from [facility] ED: WBC mildly elevated; otherwise, lytes, BUN/creatinine, AST/ALT WNL QTC: 436 Patient educated on: diagnosis, medication risk/benefits, substance abuse, therapeutic strategies and medical condition Informed Consent: understands Reason for continued inpatient stay Substantial Risk for: stable for discharge Time Spent With Patient Time: Total time managing care of this patient today ____ minutes.
[2023-01-10] MEDS: Acetaminophen 325 MG TABLET 1000 MG PO ×2 (11:29→17:38)
[2023-01-10] MEDS: oxyCODONE HCl Immed Release 5 MG TABLET 10 MG PO ×2 (14:25→21:04)
[2023-01-10] MEDS: Divalproex Sodium ER 250 MG TAB.ER.24H PO ×2 (14:34→21:02)
[2023-01-10] MEDS: Ibuprofen 800 MG TABLET PO ×2 (15:06→22:25)
[2023-01-10 18:00] VITALS: BP 170/98; PULSE 85; TEMP 36.6; O2SAT 98
[2023-01-10] MEDS: traZODone HCL 50 MG TABLET PO ×2 (21:02→22:25)
[2023-01-10] MEDS: hydrOXYzine HCL 25 MG TABLET PO (22:25)
[2023-01-11] MEDS: Acetaminophen 325 MG TABLET 1000 MG PO ×3 (02:08→18:48)
[2023-01-11] MEDS: oxyCODONE HCl Immed Release 5 MG TABLET 10 MG PO ×2 (03:03→09:03)
[2023-01-11] MEDS: cephALEXin 500 MG CAPSULE PO ×4 (05:40→23:30)
[2023-01-11 08:15] VITALS: BP 178/81; PULSE 76; RESP 16; TEMP 37; O2SAT 99
[2023-01-11] MEDS: Divalproex Sodium ER 250 MG TAB.ER.24H PO ×2 (08:18→20:49)
[2023-01-11] MEDS: LORazepam 0.5 MG TABLET PO (08:18)
[2023-01-11] MEDS: amLODIPine Besylate 5 MG TABLET PO ×2 (08:18→18:46)
[2023-01-11] MEDS: buPROPion HCl XL 150 MG TAB.ER.24H PO (08:18)
[2023-01-11] MEDS: Dextroamphetamine/Amphetamine XR 10 MG CAP.ER.24H 30 MG PO (08:18)
[2023-01-11] MEDS: TiZANidine HCL 4 MG TABLET PO ×3 (08:18→18:48)
[2023-01-11] MEDS: Folic Acid 1 MG TABLET PO (08:19)
[2023-01-11] MEDS: Thiamine HCL 100 MG TABLET 50 MG PO (08:19)
[2023-01-11] MEDS: Labetalol HCL 100 MG TABLET PO ×2 (08:19→20:49)
[2023-01-11] MEDS: Nicotine 21 MG PATCH.TD24 TRANSDERMA (08:46)
--- NOTE | 2023-01-11 12:17 | HO.PSYCHPN ---
Subjective Subjective Date of Service: 01/11/23 Reason For Visit: Depression, Suicide attempt, alcohol use disorder Interim History: Met with patient; discussed with team Patient reports mood is still depressed but a little better; very much wants Wellbutrin to be increased to which promotion writer agrees. Patient reports continued poor sleep and that she miserable due to the pain; she said it is probably true the oxycodone is helping and that without it should be in worse pain but she said she has near tears most of the day. Satellite Installer and patient discussed risks of pain management of which she is well aware. Satellite Installer agrees to restart hydromorphone which she was getting at [facility]. Patient is hoping to discharge either Thursday or Thursday for surgery. She continues to deny any history of SI or that this laceration was an actual suicide attempt. Mental Status Exam Mental Status Exam Narrative: Pt is alert and oriented; behavior is cooperative, friendly and calm; patient is not in distress; dressed in casual attire; mood is described as okay and affect congruent; eye contact appropriate; Speech is normal rate, volume and prosody and not pressured; no psychomotor agitation/retardation present; thought process is organized and goal directed; Thought content is on tx; otherwise pertinent to relevant topics and without any delusional content, paranoid ideations or grandiosity; denies any SI/HI. There is no evidence of perceptual disturbance. Patients insight and judgment impaired. Diagnostics Vital Signs (24Hr): Vital Signs - 24 hr 01/10/23 18:00 01/11/23 08:15 Temperature 98 F 98.6 F Pulse Rate 85 76 Respiratory Rate 16 Blood Pressure 170/98 H 178/81 H Pulse Oximetry 98 99 Oxygen Delivery Method Room Air Room Air BMI result Body Mass Index 33.3 Labs 01/09/23 00:14 Imaging Radiology Impressions: ITS Impressions Hand X-Ray 01/09/23 12:56 IMPRESSION: Normal left hand. No radiopaque foreign body. Medications Medications Current Medications Acetaminophen (Acetaminophen 325 Mg Tablet) 1,000 mg PO TID PRN PRN Reason: Pain, Severe (Pain Scale 7-10) Last Admin: 01/11/23 02:08 Dose: 975 mg Al Hydroxide/Mg Hydroxide (Magnesium Hydrox/Alum Hydrox 30 Ml Oral.Susp) 30 ml PO Q6H PRN PRN Reason: Heartburn/Nausea Amlodipine Besylate (Amlodipine Besylate 5 Mg Tablet) 5 mg PO DAILY [facility]; Protocol Last Admin: 01/11/23 08:18 Dose: 5 mg Amphetamine/Dextroamphetamine (Dextroamphetamine/Amphetamine Xr 10 Mg Cap.Er.24h) 30 mg PO DAILY [facility] Last Admin: 01/11/23 08:18 Dose: 30 mg Bupropion HCl (Bupropion Hcl Xl 150 Mg Tab.Er.24h) 150 mg PO DAILY [facility] Last Admin: 01/11/23 08:18 Dose: 150 mg Cephalexin HCl (Cephalexin 500 Mg Capsule) 500 mg PO Q6H [facility] Last Admin: 01/11/23 05:40 Dose: 500 mg Divalproex Sodium (Divalproex Sodium Er 250 Mg Tab.Er.24h) 250 mg PO BID [facility] Last Admin: 01/11/23 08:18 Dose: 250 mg Folic Acid (Folic Acid 1 Mg Tablet) 1 mg PO DAILY [facility] Last Admin: 01/11/23 08:19 Dose: 1 mg Hydromorphone HCl (Hydromorphone Hcl 2 Mg Tablet) 2 mg PO ONCE ONE Stop: 01/11/23 12:16 Hydromorphone HCl (Hydromorphone Hcl 2 Mg Tablet) 2 mg PO Q6H PRN PRN Reason: severe pain Hydroxyzine HCl (Hydroxyzine Hcl 25 Mg Tablet) 25 mg PO Q6H PRN PRN Reason: Anxiety Last Admin: 01/10/23 22:25 Dose: 25 mg Cefazolin Sodium/Dextrose (Ancef) 2 gm in 50 mls @ 100 mls/hr IV PREOP ONE Stop: 01/13/23 14:29 Ibuprofen (Ibuprofen 800 Mg Tablet) 800 mg PO Q8H PRN PRN Reason: Pain, Mild (Pain Scale 1-3) Last Admin: 01/10/23 22:25 Dose: 800 mg Labetalol HCl (Labetalol Hcl 100 Mg Tablet) 100 mg PO BID [facility]; Protocol Last Admin: 01/11/23 08:19 Dose: 100 mg Lorazepam (Lorazepam 0.5 Mg Tablet) 0.5 mg PO BID PRN PRN Reason: Anxiety Last Admin: 01/11/23 08:18 Dose: 0.5 mg Magnesium Hydroxide (Milk Of Magnesia 30 Ml Oral.Susp) 30 ml PO DAILY PRN PRN Reason: Constipation Nicotine (Nicotine 21 Mg Patch.Td24) 21 mg TRANSDERMA DAILY [facility] Last Admin: 01/11/23 08:46 Dose: 21 mg Nicotine Polacrilex (Nicotine Polacrilex Lozenge 4 Mg Lozenge) 4 mg BUCCAL Q2H PRN PRN Reason: nicotine replacement Last Admin: 01/09/23 10:14 Dose: 4 mg Oxycodone HCl (Oxycodone Hcl Immed Release 5 Mg Tablet) 10 mg PO Q6H PRN PRN Reason: Pain, Severe (Pain Scale 7-10) Last Admin: 01/11/23 09:03 Dose: 10 mg Thiamine HCl (Thiamine Hcl 100 Mg Tablet) 50 mg PO DAILY [facility] Last Admin: 01/11/23 08:19 Dose: 50 mg Tizanidine HCl (Tizanidine Hcl 4 Mg Tablet) 4 mg PO TID [facility] Last Admin: 01/11/23 08:18 Dose: 4 mg Trazodone HCl (Trazodone Hcl 50 Mg Tablet) 50 mg PO BEDTIME MRX1 PRN PRN Reason: Insomnia Last Admin: 01/10/23 22:25 Dose: 50 mg Zolpidem Tartrate (Zolpidem Tartrate 5 Mg Tablet) 5 mg PO BEDTIME PRN PRN Reason: Insomnia Last Admin: 01/10/23 21:10 Dose: 5 mg Allergies Allergies Allergy/AdvReac Type Severity Reaction Status Date / Time baclofen Allergy Unknown Unknown Verified 01/08/23 17:27 Sulfa (Sulfonamide Allergy Unknown Unknown Verified 01/08/23 17:27 Antibiotics) trimethoprim Allergy Unknown Unknown Verified 01/08/23 17:27 amoxicillin Allergy Unknown Unknown Uncoded 01/08/23 17:27 pcn Allergy Unknown Unknown Uncoded 01/08/23 17:27 Assessment & Plan Assessment & Plan (1) MDD (major depressive disorder), recurrent episode: Status: Acute Code(s): F33.9 - Major depressive disorder, recurrent, unspecified (2) Alcohol use disorder: Status: Acute Code(s): F10.90 - Alcohol use, unspecified, uncomplicated (3) Opioid use disorder: Status: Acute Code(s): F11.90 - Opioid use, unspecified, uncomplicated (4) Laceration of wrist, left: Status: Acute Code(s): S61.512A - Laceration without foreign body of left wrist, initial encounter (5) Seizure: Status: Acute Code(s): R56.9 - Unspecified convulsions Assessment and Plan: jeuvenile myoclonic epilpesy Plan Patient is a 37 year old female with a pmh of depression, alcohol abuse/dependence, opioid abuse/dependence (on Suboxone) who presented to [facility] ED following self-inflicted, severe left wrist laceration in face of intoxication, argument with mother, and in the context of making suicidal statements (per mother).? -patient currently denies any SI; reports she does not remember making any suicidal comments or that she was severely depressed or suicidal prior to this event. Patient's mother says otherwise that patient made a distinct suicidal, before cutting her wrist. At this time will need collateral to better assess situation including clarifying psych history and diagnosis (was once diagnosed with bipolar disorder though currently patient denies such history). Patient gave verbal permission to discuss case with her and mother; voicemail left for . -at this time will continue with home medication recently started Lexapro -CIWA for EtOH withdrawal -patient was until recently on Suboxone 8/2 mg daily; was planning to get Sublicade since patient is now getting oxycodone for pain will not restart Suboxone at this time. May however taper off oxy and restart Suboxone Hospital course: 01/10 patient reports she is doing okay; still depressed but feeling better than on admission; remains without any SI; shared history. See below 5/7 patient feeling a little better regarding mood and very much wants Wellbutrin to be increased to which promotion writer agrees. Patient is reporting oxycodone is not helping much with pain and she is near tears and unable to sleep. Patient was getting hydromorphone at hospital prior to this admission and promotion writer agrees to restart for pain management; reviewed risks/S side effects of this including relapse with substance abuse however patient feels that if it is only being used for pain she will be able to stay safe. Satellite Installer also concedes that given patient's history on Suboxone it is possible that patient's pain threshold is much lower than otherwise making her more sensitive in general to pain. Patient remains stable, in good behavioral and impulse control, without any SI. 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 She was sober from alcohol for the next 12 yrs until this current relapse -Patient under care of psychiatric provider Kymberly Olsen at [facility]; multiple medication trials with no relief for depression -2018 those sober, patient developed severe GI pain that was intermittent; she had biopsy which was unremarkable and there was no other etiology other than possible complication from adhesions -Spring 2021 patient discharged from [facility]; patient reports that provider concerned that patient's case was too complicated -Summer 2021, off meds, with worsening depression and access to the wrong person/wrong time, patient tried heroin for the 1st time in her life and used it for 2 months; got sober and on Suboxone; patient remained sober and after months on Suboxone (frustrated that she had now been on Suboxone longer than she had abused opiates), started working with provider to taper and eventually discontinue (plan was to use Sublicade for help with taper). -November- December 2022 patient remained very depressed (though denies SI at all); also with considerable trouble sleeping (though no manic symptoms at all); to treat depression and insomnia patient started to re-use alcohol little by little, sneaking it; however this developed into full-blown alcohol relapse about 2 weeks ago. For the past 4 weeks while drinking patient completely stopped taking Suboxone and other medications (she had been just started on Lexapro but had barely taking it anyway). -[facility] admission: relapse with alcoholism prompted abdominal upset (from history of abdominal surgery) and patient went to [facility] for 5 days and detoxed and got dilaudid for abdominal pain. On discharge patient started drinking again leading to current incident: -Discharged from [facility] pt started drinking again. Patient remained depressed; while intoxicated she got into a verbal altercation with her mother. Patient says that she and mother are very close and her mother is very supportive however when they argue, they both get out of control and say all kinds of things. Patient's mother was saying many very angry and critical things to her daughter knowing how to push [her] buttons. Patient said in a moment of anger, wanting to hurt her mother she cut her arm; she remains very fuzzy on the details but considers it possible she said something about suicide knowing that it would hurt her mother's feelings and that cutting her arm in front of her mother would upset her. Patient remains adamant that she in no way meant to cut herself so severely and remembers being shocked when looking down at her arm and the blood; she also continues to adamantly deny that this was in any way an actual suicide attempt or that she had any suicidal ideation at all leading up to this event Other pertinent information: Patient has tried ketamine going once a month for a few months which she found helpful but too expensive. She reports Wellbutrin 150 mg was partially helping however her outpatient provider refused to increase it. In summary patient has been off Suboxone for the past month which was her goal anyway; thus it will not be restarted at this time. Satellite Installer discussed risks of being off this medication which she understands even in the context of using opioids for pain relief from her left wrist laceration. Patient wants to get back on Wellbutrin and have it titrated to a higher dose. Satellite Installer discussed the risks of this medication including lowering the seizure threshold and that it is unclear if current Depakote dose will be adequate to prevent seizures. Patient weighed risks/benefits and feels that the potential benefit of relief from depression is worth risk of breakthrough seizures (of note, Lexapro, Zoloft, Geodon which patient has taken, all carry similar risk for lowering seizure threshold which she has tolerated without incident). Patient agrees she needs to engage in therapy. Patient acknowledged she did take a small portion of Suboxone 8/2 mg strips this past week since she was told having Suboxone in her system was criteria for getting on to Sublicade (which was scheduled to be started to help taper patient off suboxone). -promotion writer further reviewed history for bipolar, manic episodes or behaviors per patient report she has not had any manic behaviors or episodes. SUMMARY: Will gather collateral from ; however given history and patient's report, she does not appear to be in imminent risk for harm to self or others. She is scheduled for hand surgery next Thursday. At this time, unless collateral provided causes concern, will likely be able to proceed with discharge plans for patient to attend surgery. PLAN: CV Q 15 minute checks Will start Wellbutrin XL 150 mg daily for depression; patient said has partial helped in the past; promotion writer reviewed risks and she feels that benefits outweigh risks DC CIWA (patient detoxed at [facility]; since discharge patient has only been drinking for 2 days prior to this admission) will likely restart stimulant at pt request Norvasc 5mg PO daily Zanaflex 4mg PO TID Labetalol 100mg PO BID Ativan 0.5mg PO BID PRN Discontinue Lexapro patient had been recently started on it but has hardly been taking DC Suboxone Left Hand Lac: Per [facility] ED, she has a 6cm LAC on left wrist with injury to the tendon and nerve requiring 7 sutures. Pt continued on Keflex 500 mg q.6 3 to of 5 days prophylactically Patient has follow-up appointment with Dr. Mittal next week Tylenol 1000mg PO TID PRN for pain Added ibuprofen for breakthrough pain will restart Hydromorphone 2mg q6h prn for severe pain ortho consulted placed ECG again reviewed labs from [facility] ED: WBC mildly elevated; otherwise, lytes, BUN/creatinine, AST/ALT WNL QTC: 436 Patient educated on: diagnosis, medication risk/benefits and medical condition Informed Consent: understands Reason for continued inpatient stay Substantial Risk for: stable for discharge Time Spent With Patient Time: Total time managing care of this patient today ____ minutes.
[2023-01-11] MEDS: Ibuprofen 800 MG TABLET PO (12:48)
[2023-01-11] MEDS: hydrOXYzine HCL 25 MG TABLET PO (12:48)
[2023-01-11] MEDS: HYDROmorphone HCl 2 MG TABLET PO ×2 (15:10→20:50)
[2023-01-11 18:00] VITALS: BP 144/92; PULSE 83; TEMP 37; O2SAT 97
--- NOTE | 2023-01-11 18:53 | PC.NURSE ---
this remote mortgage underwriter changed left arm dressing on 01/11/2023. no signs of infection were seen. slight swelling was present.
[2023-01-11] MEDS: traZODone HCL 50 MG TABLET PO ×2 (20:50→23:30)
[2023-01-11] MEDS: Zolpidem Tartrate 5 MG TABLET PO (20:50)
[2023-01-12] MEDS: Acetaminophen 325 MG TABLET 1000 MG PO ×2 (02:49→18:34)
[2023-01-12] MEDS: HYDROmorphone HCl 2 MG TABLET PO ×4 (02:50→21:03)
[2023-01-12 06:00] VITALS: BP 162/84; PULSE 80; RESP 16; TEMP 36.5; O2SAT 99
[2023-01-12] MEDS: cephALEXin 500 MG CAPSULE PO ×3 (06:21→17:22)
[2023-01-12] MEDS: LORazepam 0.5 MG TABLET PO ×2 (06:41→11:43)
[2023-01-12] MEDS: Folic Acid 1 MG TABLET PO (08:14)
[2023-01-12] MEDS: TiZANidine HCL 4 MG TABLET PO ×3 (08:14→19:46)
[2023-01-12] MEDS: Dextroamphetamine/Amphetamine XR 10 MG CAP.ER.24H 30 MG PO (08:15)
[2023-01-12] MEDS: buPROPion HCl XL 300 MG TAB.ER.24H PO (08:15)
[2023-01-12] MEDS: Labetalol HCL 100 MG TABLET PO ×2 (08:15→19:46)
[2023-01-12] MEDS: Divalproex Sodium ER 250 MG TAB.ER.24H PO ×2 (08:16→21:03)
[2023-01-12] MEDS: Thiamine HCL 100 MG TABLET 50 MG PO (08:16)
[2023-01-12] MEDS: amLODIPine Besylate 10 MG TABLET PO (08:16)
[2023-01-12] MEDS: Nicotine 21 MG PATCH.TD24 TRANSDERMA (09:05)
[2023-01-12 09:25] VITALS: BP 158/97; PULSE 86; RESP 16; TEMP 36.4; O2SAT 100
[2023-01-12 12:26] LABS: UPreg QC Valid YES; Urine Pregnancy NEGATIVE (NEGATIVE)
--- NOTE | 2023-01-12 14:51 | P.PNPSI_ITS ---
Documented by User: Maria Del Rosario Nieves NP 01/12/23 16:15 Subjective Subjective Date of Service: 01/12/23 Reason For Visit: Depression, Suicide attempt, alcohol use disorder Subjective Notes: Conditional Voluntary Interim History: Met with patient; discussed with team Patient reports feeling better today. Patient stated, I don't feel sad. I want to move forward. I'm feeling very hopeful. Patient reports she is looking forward to attending PHP and getting in touch again with my [employer]ant [employer] after being discharged. She continues to deny any history of SI or that this laceration was an actual suicide attempt. Patient has an appointment tomorrow at 4pm with Dr. Merlos regarding her surgery for her left arm. Patient reports she is looking forward to discharge and is future oriented. Patient denies SI/HI/VH/AH at this time. Medication Compliance: Yes Side effects from medications: No Attending Groups: Yes Review of Systems Medical Review of Systems: unchanged Review of Systems Review of Systems Severe left wrist pain Chronic left-sided abdominal pain Denies fever, chills, nausea, vomiting, diarrhea Denies chest pain/pressure, palpitations No shortness of breath Yes all other systems are reviewed and are negative Constitutional: Reports as per HPI Eyes: Reports as per HPI Reports as per HPI Cardiovascular: Reports as per HPI Respiratory: Reports as per HPI Gastrointestinal: Reports as per HPI Musculoskeletal: Reports as per HPI Skin/Breast: Reports as per HPI Reports as per HPI Psychiatric: Reports as per HPI Endocrine: Reports as per HPI Hematologic/Lymphatic: Reports as per HPI Allergic/Immunologic: Reports as per HPI Mental Status Exam Mental Status Exam Narrative: Pt is alert and oriented; behavior is cooperative, friendly and calm; patient is not in distress; dressed in casual attire; mood is described as better and affect congruent; eye contact appropriate; Speech is normal rate, volume and prosody and not pressured; no psychomotor agitation/retardation present; thought process is organized and goal directed; Thought content is on tx; otherwise pertinent to relevant topics and without any delusional content, paranoid ideations or grandiosity; denies any SI/HI. There is no evidence of perceptual disturbance. Patients insight and judgment are good. Diagnostics Vital Signs (24Hr): Vital Signs - 24 hr 01/11/23 18:00 01/12/23 06:00 Temperature 98.6 F 97.7 F Pulse Rate 83 80 Respiratory Rate 16 Blood Pressure 144/92 H 162/84 H Pulse Oximetry 97 99 Oxygen Delivery Method Room Air Room Air BMI result Body Mass Index 33.3 Labs 01/09/23 00:14 Labs: Laboratory Results - last 48 hr 01/12/23 11:40 Urine Test NEGATIVE Imaging Radiology Impressions: ITS Impressions Hand X-Ray 01/09/23 12:56 IMPRESSION: Normal left hand. No radiopaque foreign body. Medications Medications Current Medications Acetaminophen (Acetaminophen 325 Mg Tablet) 1,000 mg PO TID PRN PRN Reason: Pain, Severe (Pain Scale 7-10) Last Admin: 01/12/23 02:49 Dose: 975 mg Al Hydroxide/Mg Hydroxide (Magnesium Hydrox/Alum Hydrox 30 Ml Oral.Susp) 30 ml PO Q6H PRN PRN Reason: Heartburn/Nausea Amlodipine Besylate (Amlodipine Besylate 10 Mg Tablet) 10 mg PO DAILY [facility]; Protocol Last Admin: 01/12/23 08:16 Dose: 10 mg Amphetamine/Dextroamphetamine (Dextroamphetamine/Amphetamine Xr 10 Mg Cap.Er.24h) 30 mg PO DAILY [facility] Last Admin: 01/12/23 08:15 Dose: 30 mg Bupropion HCl (Bupropion Hcl Xl 300 Mg Tab.Er.24h) 300 mg PO DAILY [facility] Last Admin: 01/12/23 08:15 Dose: 300 mg Cephalexin HCl (Cephalexin 500 Mg Capsule) 500 mg PO Q6H [facility] Last Admin: 01/12/23 11:43 Dose: 500 mg Divalproex Sodium (Divalproex Sodium Er 250 Mg Tab.Er.24h) 250 mg PO BID [facility] Last Admin: 01/12/23 08:16 Dose: 250 mg Folic Acid (Folic Acid 1 Mg Tablet) 1 mg PO DAILY [facility] Last Admin: 01/12/23 08:14 Dose: 1 mg Hydromorphone HCl (Hydromorphone Hcl 2 Mg Tablet) 2 mg PO Q6H PRN PRN Reason: severe pain Last Admin: 01/12/23 09:04 Dose: 2 mg Hydroxyzine HCl (Hydroxyzine Hcl 25 Mg Tablet) 25 mg PO Q6H PRN PRN Reason: Anxiety Last Admin: 01/11/23 12:48 Dose: 25 mg Cefazolin Sodium/Dextrose (Ancef) 2 gm in 50 mls @ 100 mls/hr IV PREOP ONE Stop: 01/13/23 14:29 Ibuprofen (Ibuprofen 800 Mg Tablet) 800 mg PO Q8H PRN PRN Reason: Pain, Mild (Pain Scale 1-3) Last Admin: 01/11/23 12:48 Dose: 800 mg Labetalol HCl (Labetalol Hcl 100 Mg Tablet) 100 mg PO BID [facility]; Protocol Last Admin: 01/12/23 08:15 Dose: 100 mg Lorazepam (Lorazepam 0.5 Mg Tablet) 0.5 mg PO BID PRN PRN Reason: Anxiety Last Admin: 01/12/23 11:43 Dose: 0.5 mg Magnesium Hydroxide (Milk Of Magnesia 30 Ml Oral.Susp) 30 ml PO DAILY PRN PRN Reason: Constipation Nicotine (Nicotine 21 Mg Patch.Td24) 21 mg TRANSDERMA DAILY [facility] Last Admin: 01/12/23 09:05 Dose: 21 mg Nicotine Polacrilex (Nicotine Polacrilex Lozenge 4 Mg Lozenge) 4 mg BUCCAL Q2H PRN PRN Reason: nicotine replacement Last Admin: 01/09/23 10:14 Dose: 4 mg Thiamine HCl (Thiamine Hcl 100 Mg Tablet) 50 mg PO DAILY [facility] Last Admin: 01/12/23 08:16 Dose: 50 mg Tizanidine HCl (Tizanidine Hcl 4 Mg Tablet) 4 mg PO TID [facility] Last Admin: 01/12/23 08:14 Dose: 4 mg Trazodone HCl (Trazodone Hcl 50 Mg Tablet) 50 mg PO BEDTIME MRX1 PRN PRN Reason: Insomnia Last Admin: 01/11/23 23:30 Dose: 50 mg Zolpidem Tartrate (Zolpidem Tartrate 5 Mg Tablet) 5 mg PO BEDTIME PRN PRN Reason: Insomnia Last Admin: 01/11/23 20:50 Dose: 5 mg Allergies Allergies Allergy/AdvReac Type Severity Reaction Status Date / Time baclofen Allergy Unknown Unknown Verified 01/08/23 17:27 Sulfa (Sulfonamide Allergy Unknown Unknown Verified 01/08/23 17:27 Antibiotics) trimethoprim Allergy Unknown Unknown Verified 01/08/23 17:27 amoxicillin Allergy Unknown Unknown Uncoded 01/08/23 17:27 pcn Allergy Unknown Unknown Uncoded 01/08/23 17:27 Assessment & Plan Assessment & Plan (1) MDD (major depressive disorder), recurrent episode: Status: Acute Code(s): F33.9 - Major depressive disorder, recurrent, unspecified (2) Alcohol use disorder: Status: Acute Code(s): F10.90 - Alcohol use, unspecified, uncomplicated (3) Opioid use disorder: Status: Acute Code(s): F11.90 - Opioid use, unspecified, uncomplicated (4) Laceration of wrist, left: Status: Acute Code(s): S61.512A - Laceration without foreign body of left wrist, initial encounter (5) Seizure: Status: Acute Code(s): R56.9 - Unspecified convulsions Assessment and Plan: jeuvenile myoclonic epilpesy Plan Patient is a 37 year old female with a pmh of depression, alcohol abuse/dependence, opioid abuse/dependence (on Suboxone) who presented to [facility] ED following self-inflicted, severe left wrist laceration in face of intoxication, argument with mother, and in the context of making suicidal statements (per mother).? -patient currently denies any SI; reports she does not remember making any suicidal comments or that she was severely depressed or suicidal prior to this event. Patient's mother says otherwise that patient made a distinct suicidal, before cutting her wrist. At this time will need collateral to better assess situation including clarifying psych history and diagnosis (was once diagnosed with bipolar disorder though currently patient denies such history). Patient gave verbal permission to discuss case with her and mother; voicemail left for . -at this time will continue with home medication recently started Lexapro -CIWA for EtOH withdrawal -patient was until recently on Suboxone 8/2 mg daily; was planning to get Sublicade since patient is now getting oxycodone for pain will not restart Suboxone at this time. May however taper off oxy and restart Suboxone Hospital course: 01/10 patient reports she is doing okay; still depressed but feeling better than on admission; remains without any SI; shared history. See below 01/11 patient feeling a little better regarding mood and very much wants Wellbutrin to be increased to which newswriter agrees. Patient is reporting oxycodone is not helping much with pain and she is near tears and unable to sl eep. Patient was getting hydromorphone at hospital prior to this admission and newswriter agrees to restart for pain management; reviewed risks/S side effects of this including relapse with substance abuse however patient feels that if it is only being used for pain she will be able to stay safe. [employer] also concedes that given patient's history on Suboxone it is possible that patient's pain threshold is much lower than otherwise making her more sensitive in general to pain. Patient remains stable, in good behavioral and impulse control, without any SI. She is confident her will corroborate her history of safe behaviors and patient is hoping to discharge Thursday or Friday 01/12: Patient feeling hopeful today. She reports not feeling sad. Spoke with (Mahendra) who reports she appears to be more positive and upbeat when he spoke with her today. Patient plans to attend [facility] and follow up with outpatient providers after discharge. She has an appointment with Dr. Merlos at 4pm tomorrow for her pre-surgery screening. Patient is looking forward to discharge. Rupinder Gillespie notified that patient will not be having surgery here tomorrow and would like to see Dr. Merlos. 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 She was sober from alcohol for the next 12 yrs until this current relapse -Patient under care of psychiatric provider [facility]ym[facility] Olsen at [facility]; multiple medication trials with no relief for depression -2018 those sober, patient developed severe GI pain that was intermittent; she had biopsy which was unremarkable and there was no other etiology other than possible complication from adhesions -Spring 2021 patient discharged from [facility]; patient reports that provider concerned that patient's case was too complicated -Summer 2021, off meds, with worsening depression and access to the wrong person/wrong time, patient tried heroin for the 1st time in her life and used it for 2 months; got sober and on Suboxone; patient remained sober and after months on Suboxone (frustrated that she had now been on Suboxone longer than she had abused opiates), started working with provider to taper and eventually discontinue (plan was to use Sublicade for help with taper). -November- December 2022 patient remained very depressed (though denies SI at all); also with considerable trouble sleeping (though no manic symptoms at all); to treat depression and insomnia patient started to re-use alcohol little by little, sneaking it; however this developed into full-blown alcohol relapse about 2 weeks ago. For the past 4 weeks while drinking patient completely stopped taking Suboxone and other medications (she had been just started on Lexapro but had barely taking it anyway). -[facility] admission: relapse with alcoholism prompted abdominal upset (from history of abdominal surgery) and patient went to [facility] for 5 days and detoxed and got dilaudid for abdominal pain. On discharge patient started drinking again leading to current incident: -Discharged from [facility] pt started drinking again. Patient remained depressed; while intoxicated she got into a verbal altercation with her mother. Patient says that she and mother are very close and her mother is very supportive however when they argue, they both get out of control and say all kinds of things. Patient's mother was saying many very angry and critical things to her daughter knowing how to push [her] buttons. Patient said in a moment of anger, wanting to hurt her mother she cut her arm; she remains very fuzzy on the details but considers it possible she said something about suicide knowing that it would hurt her mother's feelings and that cutting her arm in front of her mother would upset her. Patient remains adamant that she in no way meant to cut herself so severely and remembers being shocked when looking down at her arm and the blood; she also continues to adamantly deny that this was in any way an actual suicide attempt or that she had any suicidal ideation at all leading up to this event Other pertinent information: Patient has tried ketamine going once a month for a few months which she found helpful but too expensive. She reports Wellbutrin 150 mg was partially helping however her outpatient provider refused to increase it. In summary patient has been off Suboxone for the past month which was her goal anyway; thus it will not be restarted at this time. [employer] discussed risks of being off this medication which she understands even in the context of using opioids for pain relief from her left wrist laceration. Patient wants to get back on Wellbutrin and have it titrated to a higher dose. [employer] discussed the risks of this medication including lowering the seizure threshold and that it is unclear if current Depakote dose will be adequate to prevent seizures. Patient weighed risks/benefits and feels that the potential benefit of relief from depression is worth risk of breakthrough seizures (of note, Lexapro, Zoloft, Geodon which patient has taken, all carry similar risk for lowering seizure threshold which she has tolerated without incident). Patient agrees she needs to engage in therapy. Patient acknowledged she did take a small portion of Sub oxone 8/2 mg strips this past week since she was told having Suboxone in her system was criteria for getting on to Sublicade (which was scheduled to be started to help taper patient off suboxone). -newswriter further reviewed history for bipolar, manic episodes or behaviors per patient report she has not had any manic behaviors or episodes. SUMMARY: Will gather collateral from ; however given history and patient's report, she does not appear to be in imminent risk for harm to self or others. She is scheduled for hand surgery next Thursday. At this time, unless collateral provided causes concern, will likely be able to proceed with discharge plans for patient to attend surgery. PLAN: CV Q 15 minute checks Wellbutrin XL 150 mg daily for depression Norvasc 5mg PO daily Zanaflex 4mg PO TID Labetalol 100mg PO BID Ativan 0.5mg PO BID PRN Discharge tomorrow. Left Hand Lac: Per [facility] ED, she has a 6cm LAC on left wrist with injury to the tendon and nerve requiring 7 sutures. Pt continued on Keflex 500 mg q.6 3 to of 5 days prophylactically Patient has follow-up appointment with Dr. Merlos tomorrow at 4pm. Tylenol 1000mg PO TID PRN for pain ibuprofen for breakthrough pain Hydromorphone 2mg q6h prn for severe pain ortho consulted placed ECG again reviewed labs from [facility] ED: WBC mildly elevated; otherwise, lytes, BUN/creatinine, AST/ALT WNL QTC: 436 Reason for continued inpatient stay Substantial Risk for: stable for discharge Time Spent With Patient Time: Total time managing care of this patient today ____ minutes. Documented by User: Tim Orellana MD 01/12/23 16:23 Subjective Subjective Reason For Visit: Depression, Suicide attempt, alcohol use disorder Interim History: Met with patient; discussed with team Patient reports feeling better today. Patient stated, I don't feel sad. I want to move forward. I'm feeling very hopeful. Patient reports she is looking forward to attending PHP and getting in touch again with my [employer]ant [employer]. [employer] after being discharged. She continues to deny any history of SI or that this laceration was an actual suicide attempt. Patient has an appointment tomorrow at 4pm with Dr. Merlos regarding her surgery for her left arm. Patient reports she is looking forward to discharge and is future oriented. Patient denies SI/HI/VH/AH at this time. Spoke with today who confirms that patient has no history of self-harm and that she seems to be doing much better, positive outlook; he agrees that laceration was not an actual suicide attempt and agrees that she is safe and not in danger of harm. Mental Status Exam Mental Status Exam Narrative: Pt is alert and oriented; behavior is cooperative, friendly and calm; patient is not in distress; dressed in casual attire; mood is described as better and affect congruent; eye contact appropriate; Speech is normal rate, volume and prosody and not pressured; no psychomotor agitation/retardation present; thought process is organized and goal directed; Thought content is on tx; otherwise pertinent to relevant topics and without any delusional content, paranoid ideations or grandiosity; denies any SI/HI. There is no evidence of perceptual disturbance. Patients insight and judgment are fair Diagnostics Labs 01/09/23 00:14 Assessment & Plan Assessment & Plan (1) MDD (major depressive disorder), recurrent episode: Status: Acute Code(s): F33.9 - Major depressive disorder, recurrent, unspecified (2) Alcohol use disorder: Status: Acute Code(s): F10.90 - Alcohol use, unspecified, uncomplicated (3) Opioid use disorder: Status: Acute Code(s): F11.90 - Opioid use, unspecified, uncomplicated (4) Laceration of wrist, left: Status: Acute Code(s): S61.512A - Laceration without foreign body of left wrist, initial encounter (5) Seizure: Status: Acute Code(s): R56.9 - Unspecified convulsions Plan Patient is a 37 year old female with a pmh of depression, alcohol abuse/dependence, opioid abuse/dependence (on Suboxone) who presented to [facility] ED following self-inflicted, severe left wrist laceration in face of intoxication, argument with mother, and in the context of making suicidal statements (per mother).? -patient currently denies any SI; reports she does not remember making any suicidal comments or that she was severely depressed or suicidal prior to this e vent. Patient's mother says otherwise that patient made a distinct suicidal, before cutting her wrist. At this time will need collateral to better assess situation including clarifying psych history and diagnosis (was once diagnosed with bipolar disorder though currently patient denies such history). Patient gave verbal permission to discuss case with her and mother; voicemail left for . -at this time will continue with home medication recently started Lexapro -CIWA for EtOH withdrawal -patient was until recently on Suboxone 8/2 mg daily; was planning to get Sublicade since patient is now getting oxycodone for pain will not restart Suboxone at this time. May however taper off oxy and restart Suboxone PLAN: CV Q 15 minute checks Wellbutrin XL 300 mg daily for depression Increase to Norvasc 10 mg PO daily for continued hypertension Zanaflex 4mg PO TID Labetalol 100mg PO BID Ativan 0.5mg PO BID PRN Discharge tomorrow. Left Hand Lac: Per [facility] ED, she has a 6cm LAC on left wrist with injury to the tendon and nerve requiring 7 sutures. Pt continued on Keflex 500 mg q.6 3 to of 5 days prophylactically Patient has follow-up appointment with Dr. Merlos 01/13 at 4pm. Tylenol 1000mg PO TID PRN for pain ibuprofen for breakthrough pain Hydromorphone 2mg q6h prn for severe pain Hospital course: 01/10 patient reports she is doing okay; still depressed but feeling better than on admission; remains without any SI; shared history. See below 01/11 patient feeling a little better regarding mood and very much wants Wellbutrin to be increased to which newswriter agrees. Patient is reporting oxycodone is not helping much with pain and she is near tears and unable to sleep. Patient was getting hydromorphone at hospital prior to this admission and newswriter agrees to restart for pain management; reviewed risks/S side effects of this including relapse with substance abuse however patient feels that if it is only being used for pain she will be able to stay safe. [employer] also concedes that given patient's history on Suboxone it is possible that patient's pain th reshold is much lower than otherwise making her more sensitive in general to pain. Patient remains stable, in good behavioral and impulse control, without any SI. She is confident her will corroborate her history of safe behaviors and patient is hoping to discharge Thursday or Friday 01/12: Patient feeling hopeful today. She reports not feeling sad. Spoke with (Mahendra) who reports she appears to be more positive and upbeat and does not think she is suicidal and is safe; when he spoke with her today. Patient plans to attend [facility] and follow up with outpatient providers after disc harge. She has an appointment with Dr. Merlos at 4pm tomorrow for her pre-surgery screening. Patient is looking forward to discharge. Rupinder Montanezs notified that patient will not be having surgery here tomorrow and would like to see Dr. Merlos. 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 She was sober from alcohol for the next 12 yrs until this current relapse -Patient under care of psychiatric provider Kymberly Olsen at [facility]; multiple medication trials with no relief for depression -2018 those sober, patient developed severe GI pain that was intermittent; she had biopsy which was unremarkable and there was no other etiology other than possible complication from adhesions -Spring 2021 patient discharged from [facility]; patient reports that provider concerned that patient's case was too complicated -Summer 2021, off meds, with worsening depression and access to the wrong person/wrong time, patient tried heroin for the 1st time in her life and used it for 2 months; got sober and on Suboxone; patient remained sober and after months on Suboxone (frustrated that she had now been on Suboxone longer than she had abused opiates), started working with provider to taper and eventually discontinue (plan was to use Sublicade for help with taper). -November- December 2022 patient remained very depressed (though denies SI at all); also with considerable trouble sleeping (though no manic symptoms at all); to treat depression and insomnia patient started to re-use alcohol little by little, sneaking it; however this developed into full-blown alcohol relapse about 2 weeks ago. For the past 4 weeks while drinking patient completely stopped taking Suboxone and other medications (she had been just started on Lexapro but had barely taking it anyway). -[facility] admission: relapse with alcoholism prompted abdominal upset (from history of abdominal surgery) and patient went to [facility] for 5 days and detoxed and got dilaudid for abdominal pain. On discharge patient started drinking again leading to current incident: -Discharged from [facility] pt started drinking again. Patient remained depressed; while intoxicated she got into a verbal altercation with her mother. Patient says that she and mother are very close and her mother is very supportive however when they argue, they both get out of control and say all kinds of things. Patient's mother was saying many very angry and critical things to her daughter knowing how to push [her] buttons. Patient said in a moment of anger, wanting to hurt her mother she cut her arm; she remains very fuzzy on the details but considers it possible she said something about suicide knowing that it would hurt her mother's feelings and that cutting her arm in front of her mother would upset her. Patient remains adamant that she in no way meant to cut herself so severely and remembers being shocked when looking down at her arm and the blood; she also continues to adamantly deny that this was in any way an actual suicide attempt or that she had any suicidal ideation at all leading up to this event Other pertinent information: Patient has tried ketamine going once a month for a few months which she found helpful but too expensive. She reports Wellbutrin 150 mg was partially helping however her outpatient provider refused to increase it. In summary patient has been off Suboxone for the past month which was her goal anyway; thus it will not be restarted at this time. Sales Representative Livestock discussed risks of being off this medication which she understands even in the context of using opioids for pain relief from her left wrist laceration. Patient wants to get back on Wellbutrin and have it titrated to a higher dose. Sales Representative Livestock discussed the risks of this medication including lowering the seizure threshold and that it is unclear if current Depakote dose will be adequate to prevent seizures. Patient weighed risks/benefits and feels that the potential benefit of relief from depression is worth risk of breakthrough seizures (of note, Lexapro, Zoloft, Geodon which patient has taken, all carry similar risk for lowering seizure threshold which she has tolerated without incident). Patient agrees she needs to engage in therapy. Patient acknowledged she did take a small portion of Suboxone 8/2 mg strips this past week since she was told having Suboxone in her system was criteria for getting on to Sublicade (which was scheduled to be started to help taper patient off suboxone). -newswriter further reviewed history for bipolar, manic episodes or behaviors per patient report she has not had any manic behaviors or episodes. SUMMARY: Will gather collateral from ; however given history and patient's report, she does not appear to be in imminent risk for harm to self or others. She is scheduled for hand surgery next Thursday. At this time, unless collateral provided causes concern, will likely be able to proceed with discharge plans for patient to attend surgery. ECG again reviewed labs from [facility] ED: WBC mildly elevated; otherwise, lytes, BUN/creatinine, AST/ALT WNL QTC: 436 Discussed case with CRAWLER TRACTOR OPERATOR and agree with treatment plan Patient educated on: diagnosis, medication risk/benefits, substance abuse, therapeutic strategies and medical condition Informed Consent: understands
[2023-01-12] MEDS: Ibuprofen 800 MG TABLET PO (15:09)
[2023-01-12 19:21] VITALS: BP 126/84; PULSE 86; TEMP 36.6
[2023-01-12] MEDS: Zolpidem Tartrate 5 MG TABLET PO (21:03)
[2023-01-12] MEDS: traZODone HCL 50 MG TABLET PO ×2 (21:03→22:48)
[2023-01-13] MEDS: hydrOXYzine HCL 25 MG TABLET PO (02:56)
[2023-01-13] MEDS: Ibuprofen 800 MG TABLET PO ×2 (02:59→12:59)
[2023-01-13] MEDS: HYDROmorphone HCl 2 MG TABLET PO ×3 (03:10→15:02)
[2023-01-13] MEDS: LORazepam 0.5 MG TABLET PO ×2 (03:59→13:00)
[2023-01-13] MEDS: Acetaminophen 325 MG TABLET 1000 MG PO (06:30)
[2023-01-13 08:25] VITALS: BP 158/97; PULSE 86; RESP 16; TEMP 36.4
[2023-01-13] MEDS: buPROPion HCl XL 300 MG TAB.ER.24H PO (08:26)
[2023-01-13] MEDS: Dextroamphetamine/Amphetamine XR 10 MG CAP.ER.24H 30 MG PO (08:26)
[2023-01-13] MEDS: Thiamine HCL 100 MG TABLET 50 MG PO (08:27)
[2023-01-13] MEDS: Labetalol HCL 100 MG TABLET PO (08:27)
[2023-01-13] MEDS: TiZANidine HCL 4 MG TABLET PO ×2 (08:27→15:02)
[2023-01-13] MEDS: Folic Acid 1 MG TABLET PO (08:27)
[2023-01-13] MEDS: cephALEXin 500 MG CAPSULE PO (08:27)
[2023-01-13] MEDS: amLODIPine Besylate 10 MG TABLET PO (08:28)
[2023-01-13] MEDS: Divalproex Sodium ER 250 MG TAB.ER.24H PO (08:28)
[2023-01-13] MEDS: Nicotine 21 MG PATCH.TD24 TRANSDERMA (09:54)
--- NOTE | 2023-01-13 14:12 | PM.PSYDC ---
DS: Providers Provider Date of Service: 01/13/23 <Maria Del Rosario Nieves NP - Last Filed: 01/14/23 15:51> Date of admission: 01/08/23 22:55 <Maria Del Rosario Nieves NP - Last Filed: 01/14/23 15:51> Date of discharge: 01/13/23 <Maria Del Rosario Nieves NP - Last Filed: 01/14/23 15:51> Primary care physician: Darby Coon MD <Maria Del Rosario Nieves NP - Last Filed: 01/14/23 15:51> Attending physician on admission: Maria Del Rosario Nieves <Maria Del Rosario Nieves NP - Last Filed: 01/14/23 15:51> Consults: 01/08/23 17:41 Consult to Hospitalist Routine Comment: Consulting Provider: Hospitalist Reason For Exam: [facility]; HTN, medication noncompliance 01/09/23 10:49 Consult to Orthopedics Routine Consulting Provider: [facility] Reason for consultation: 6cm LAC on left wrist with injury to tendon and nerve, 7 sutures. <Maria Del Rosario Nieves NP - Last Filed: 01/14/23 15:51> Attending physician on discharge: Maria Del Rosario Nieves <Maria Del Rosario Nieves NP - Last Filed: 01/14/23 15:51> DS: Diagnosis Discharge Diagnosis (1) MDD (major depressive disorder), recurrent episode: Status: Acute <Maria Del Rosario Nieves NP - Last Filed: 01/14/23 15:51> (2) Alcohol use disorder: Status: Acute <Maria Del Rosario Nieves NP - Last Filed: 01/14/23 15:51> (3) Opioid use disorder: Status: Acute <Maria Del Rosario Nieves NP - Last Filed: 01/14/23 15:51> (4) Laceration of wrist, left: Status: Acute <Maria Del Rosario Nieves NP - Last Filed: 01/14/23 15:51> (5) Seizure: Status: Acute <Maria Del Rosario Nieves NP - Last Filed: 01/14/23 15:51> DS: Medications Discharge Medications Home Medications: Home Medications Medication Instructions Recorded Confirmed labetalol 100 mg tablet 100 mg PO BID 05/05/23 05/05/23 lorazepam 0.5 mg tablet 0.5 mg PO BID PRN Anxiety 01/09/23 01/09/23 tizanidine 4 mg tablet 4 mg PO TID 01/09/23 01/09/23 Previous Rx's Medication Instructions Recorded amlodipine 10 mg tablet 10 mg PO DAILY 30 days #30 tabs 01/13/23 bupropion HCl 300 mg 24 hr tablet, 300 mg PO DAILY 30 days #30 tabs 01/13/23 extended release cephalexin 500 mg capsule 500 mg PO BID 3 days #6 caps 01/13/23 divalproex 250 mg tablet,extended 250 mg PO BID 30 days #60 tabs 01/13/23 release 24 hr hydromorphone 2 mg tablet 2 mg PO Q6H PRN pain 3 days #12 01/13/23 tabs hydroxyzine HCl 25 mg tablet 25 mg PO BID PRN Anxiety 30 days 01/13/23 #60 tabs trazodone 100 mg tablet 100 mg PO BEDTIME PRN insomnia 30 01/13/23 days #30 tabs <Maria Del Rosario Nieves NP - Last Filed: 01/14/23 15:51> Mental Status Exam Mental Status Exam Narrative: Pt is alert and oriented; behavior is cooperative, friendly and calm; patient is not in distress; dressed in casual attire; mood is described as good and affect congruent; eye contact appropriate; Speech is normal rate, volume and prosody and not pressured; no psychomotor agitation/retardation present; thought process is organized and goal directed; Thought content is on tx; otherwise pertinent to relevant topics and without any delusional content, paranoid ideations or grandiosity; denies any SI/HI. There is no evidence of perceptual disturbance. Patients insight and judgment appear intact. <Maria Del Rosario Nieves NP - Last Filed: 01/14/23 15:51> Pt is alert and oriented; behavior is cooperative, friendly and calm; patient is not in distress; dressed in casual attire; mood is described as good and affect congruent; eye contact appropriate; Speech is normal rate, volume and prosody and not pressured; no psychomotor agitation/retardation present; thought process is organized and goal directed; Thought content is on tx; otherwise pertinent to relevant topics and without any delusional content, paranoid ideations or grandiosity; denies any SI/HI. There is no evidence of perceptual disturbance. Patients insight and judgment are intact. <Tim Orellana MD - Last Filed: 01/27/23 15:26> Data Data Completed and Pending Completed studies during hospitalization [Text1]: 01/09/23 01/09/23 01/09/23 00:14 08:02 08:02 Creatinine 0.82 Estim Creat Clear Calc TNP Estimated GFR > 60 Estimat Average Glucose 82 Hemoglobin A1c % 4.5 Magnesium 1.9 Triglycerides 174 Cholesterol 279 LDL Cholesterol, Calc 200 HDL Cholesterol 45 Vitamin B12 449 Folate 11.3 TSH 1.42 Free T4 0.93 Urine Test 01/12/23 11:40 Creatinine Estim Creat Clear Calc Estimated GFR Estimat Average Glucose Hemoglobin A1c % Magnesium Triglycerides Cholesterol LDL Cholesterol, Calc HDL Cholesterol Vitamin B12 Folate TSH Free T4 Urine Test NEGATIVE <Maria Del Rosario Nieves NP - Last Filed: 01/14/23 15:51> Imaging Diagnostic Imaging Impressions Hand X-Ray 01/09/23 12:56 IMPRESSION: Normal left hand. No radiopaque foreign body. <Maria Del Rosario Nieves NP - Last Filed: 01/14/23 15:51> DS: Summary Hospital Course Hospital Course: HPI: Patient is a 37 year old female with a pmh of depression, alcohol abuse/dependence, opioid abuse/dependence (on Suboxone) who presented to [facility] ED following self-inflicted, severe left wrist laceration in face of intoxication, argument with mother, and in the context of making suicidal statements (per mother). -patient currently denies any SI; reports she does not remember making any suicidal comments or that she was severely depressed or suicidal prior to this event. Patient's mother says otherwise that patient made a distinct suicidal, before cutting her wrist. Hospital course: 01/10 patient reports she is doing okay; still depressed but feeling better than on admission; remains without any SI; shared history. See below 01/11 patient feeling a little better regarding mood and very much wants Wellbutrin to be increased to which underwriter mortgage loan agrees. Patient is reporting oxycodone is not helping much with pain and she is near tears and unable to sleep. Patient was getting hydromorphone at hospital prior to this admission and underwriter mortgage loan agrees to restart for pain management; reviewed risks/S side effects of this including relapse with substance abuse however patient feels that if it is only being used for pain she will be able to stay safe. Shade Cloth Finisher also concedes that given patient's history on Suboxone it is possible that patient's pain threshold is much lower than otherwise making her more sensitive in general to pain. Patient remains stable, in good behavioral and impulse control, without any SI. She is confident her will corroborate her history of safe behaviors and patient is hoping to discharge Thursday or Friday 01/12: Patient feeling hopeful today. She reports not feeling sad. Spoke with (Mahendra) who reports she appears to be more positive and upbeat when he spoke with her today. Patient plans to attend [facility] and follow up with outpatient providers after discharge. She has an appointment with Dr. Merlos at 4pm tomorrow for her pre-surgery screening. Patient is looking forward to discharge. Rupinder Gillespie notified that patient will not be having surgery here tomorrow and would like to see Dr. Merlos. Patient is returning to her supportive . She is future oriented, in a good mood and hopeful about pursuing sobriety and staying stable. Patient is not in imminent risk for harm to self or others and request for discharge honored. Left Hand Lac: 6cm LAC on left wrist with injury to the tendon and nerve requiring 7 sutures. Pt continued on Keflex 500 mg q.6 3 to of 5 days prophylactically Patient has follow-up appointment with Dr. Merlos tomorrow at 4pm. 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 She was sober from alcohol for the next 12 yrs until this current relapse -Patient under care of psychiatric provider Kymberly Olsen at [facility]; multiple medication trials with no relief for depression -2018 those sober, patient developed severe GI pain that was intermittent; she had biopsy which was unremarkable and there was no other etiology other than possible complication from adhesions -Spring 2021 patient discharged from [facility]; patient reports that provider concerned that patient's case was too complicated -Summer 2021, off meds, with worsening depression and access to the wrong person/wrong time, patient tried heroin for the 1st time in her life and used it for 2 months; got sober and on Suboxone; patient remained sober and after months on Suboxone (frustrated that she had now been on Suboxone longer than she had abused opiates), started working with provider to taper and eventually discontinue (plan was to use Sublicade for help with taper). -November- December 2022 patient remained very depressed (though denies SI at all); also with considerable trouble sleeping (though no manic symptoms at all); to treat depression and insomnia patient started to re-use alcohol little by little, sneaking it; however this developed into full-blown alcohol relapse about 2 weeks ago. For the past 4 weeks while drinking patient completely stopped taking Suboxone and other medications (she had been just started on Lexapro but had barely taking it anyway). -[place] [facility] admission: relapse with alcoholism prompted abdominal upset (from history of abdominal surgery) and patient went to [facility] for 5 days and detoxed and got dilaudid for abdominal pain. On discharge patient started drinking again leading to current incident: -Discharged from [place] pt started drinking again. Patient remained depressed; while intoxicated she got into a verbal altercation with her mother. Patient says that she and mother are very close and her mother is very supportive however when they argue, they both get out of control and say all kinds of things. Patient's mother was saying many very angry and critical things to her daughter knowing how to push [her] buttons. Patient said in a moment of anger, wanting to hurt her mother she cut her arm; she remains very fuzzy on the details but considers it possible she said something about suicide knowing that it would hurt her mother's feelings and that cutting her arm in front of her mother would upset her. Patient remains adamant that she in no way meant to cut herself so severely and remembers being shocked when looking down at her arm and the blood; she also continues to adamantly deny that this was in any way an actual suicide attempt or that she had any suicidal ideation at all leading up to this event <Maria Del Rosario Nieves NP - Last Filed: 01/14/23 15:51> Time spent discussing smoking cessation with patient: 3 to 10 minutes <Maria Del Rosario Nieves NP - Last Filed: 01/14/23 15:51> Status at Discharge Cognitive/behavioral status at discharge: Patient was interviewed prior to discharge and found to be fully oriented and without any SI or HI. Patient has insight and demonstrates good judgment in terms of wanting to pursue treatment. Patient is not in imminent risk of harm to self or others and has a safety plan that includes presenting to the closest ER or calling 911 if feeling unsafe. Patient has been observed closely by nursing and unit staff throughout admission; patient has not engaged in any behaviors that suggest dangerousness to self or others and has demonstrated appropriate behaviors and impulse control. Patient plans on following up with her outpatient providers when discharged. <Maria Del Rosario Nieves NP - Last Filed: 01/14/23 15:51> Functional status at discharge: independent ambulation <Maria Del Rosario Nieves NP - Last Filed: 01/14/23 15:51> Overall status at discharge: patient is back to baseline <Maria Del Rosario Nieves NP - Last Filed: 01/14/23 15:51> Time Spent with Patient Time attestation: Total time managing care of this patient today ____ minutes. <Maria Del Rosario Nieves NP - Last Filed: 01/14/23 15:51> Time spent: Greater than 30 minutes <Maria Del Rosario Nieves NP - Last Filed: 01/14/23 15:51> Specific discharge activities: Patient to follow up with outpatient providers. <Maria Del Rosario Nieves NP - Last Filed: 01/14/23 15:51> Discharge Plan Discharge Anticipated Discharge Date/Time: 01/13/23 14:11 <Maria Del Rosario Nieves NP - Last Filed: 01/14/23 15:51> Patient Disposition: Home, Self-Care <Maria Del Rosario Nieves NP - Last Filed: 01/14/23 15:51> Discharge Diagnosis: MDD, recurrent episode <Maria Del Rosario Nieves NP - Last Filed: 01/14/23 15:51> MDD, recurrent episode <Tim Orellana MD - Last Filed: 01/27/23 15:26> Referrals: Linda (therapist): [facility] [[facility]] - 01/14/23 11:00 am (Hospital Discharge Appointment for Therapy Appointment is in Person) Dr. Chioma Merlos: [facility] [Other] - 01/13/23 4:00 pm (Appointment with orthopedic Surgeon ) [facility] :[facility] [Other] - 01/14/23 1:00 pm (Initial Intake for Partial Hospitalization program with Cat[facility] Appointment in person ) Darby Coon MD [Primary Care Provider] - 1 Week (office will call back or call pt. with f/u appointment.) <Maria Del Rosario Nieves NP - Last Filed: 01/14/23 15:51> Discharge Medications: New cephalexin 500 mg Capsule 500 mg PO BID 3 Days Qty: 6 0RF amlodipine 10 mg Tablet 10 mg PO DAILY 30 Days Qty: 30 0RF Protocol: Hold for SBP< HOLD for SBP < : 90 bupropion HCl 300 mg Tablet Extended Release 24 Hr 300 mg PO DAILY 30 Days Qty: 30 0RF divalproex 250 mg Tablet Extended Release 24 Hr 250 mg PO BID 30 Days Qty: 60 0RF hydroxyzine HCl 25 mg Tablet 25 mg PO BID PRN (Reason: Anxiety) 30 Days Qty: 60 0RF trazodone 100 mg tablet 100 mg PO BEDTIME PRN (Reason: insomnia) 30 Days Qty: 30 0RF Continued labetalol 100 mg tablet 100 mg PO BID lorazepam 0.5 mg tablet 0.5 mg PO BID PRN (Reason: Anxiety) tizanidine 4 mg tablet 4 mg PO TID Changed hydromorphone 2 mg tablet 2 mg PO Q6H PRN (Reason: pain) 3 Days Qty: 12 0RF Discontinued amlodipine 5 mg tablet 5 mg PO DAILY escitalopram oxalate 20 mg tablet 20 mg PO QAM <Maria Del Rosario Nieves NP - Last Filed: 01/14/23 15:51> Discharge Orders: Discharge Order (Routine); Ordered 01/13/23 Ordered By: Maria Del Rosario Nieves <Maria Del Rosario Nieves NP - Last Filed: 01/14/23 15:51> Diet: Regular diet <Maria Del Rosario Nieves NP - Last Filed: 01/14/23 15:51> Regular diet <Tim Orellana MD - Last Filed: 01/27/23 15:26> Activity on Discharge: As tolerated <Maria Del Rosario Nieves NP - Last Filed: 01/14/23 15:51> As tolerated <Tim Orellana MD - Last Filed: 01/27/23 15:26> Stand Alone Forms: Patient Portal Discharge page, Community Support <Maria Del Rosario Nieves NP - Last Filed: 01/14/23 15:51> Care Plan Goals: Maintain mood and safe behaviors Take medications as prescribed Continue to pursue sobriety Practice coping skills Continue with outpatient providers and reach out to them as needed <Maria Del Rosario Nieves NP - Last Filed: 01/14/23 15:51> Health Concerns: Mood stability and behaviors Sobriety <Maria Del Rosario Nieves NP - Last Filed: 01/14/23 15:51> Plan of Treatment: Follow up with your PCP, psychiatric provider and other outpatient providers regarding above concerns Take medications as prescribed <Maria Del Rosario Nieves NP - Last Filed: 01/14/23 15:51> Assessment: Risk assessment at time of discharge: Patient was interviewed prior to discharge and found to be fully oriented and without any SI or HI. Patient has insight and demonstrates good judgment in terms of wanting to pursue treatment. Patient is not in imminent risk of harm to self or others and has a safety plan that includes presenting to the closest ER or calling 911 if feeling unsafe. Patient has been observed closely by nursing and unit staff throughout admission; patient has not engaged in any behaviors that suggest dangerousness to self or others and has demonstrated appropriate behaviors and impulse control. <Maria Del Rosario Nieves NP - Last Filed: 01/14/23 15:51> Discharge Date/Time: 01/13/23 15:25 <Maria Del Rosario Nieves NP - Last Filed: 01/14/23 15:51>
== END 2023-01-13 15:25 | disposition home or self-care (01) | DRG 751 ==
PROVIDERS: Clinical Nurse Specialist Psychiatric/Mental Health, Adult; Nurse Practitioner; Admitting Provider Psychiatry & Neurology Psychiatry; PCP Internal Medicine; Visit Provider Registered Nurse
DX: F33.9 Major depressive disorder, recurrent, unspecified (principal); F10.20 Alcohol dependence, uncomplicated; F17.210 Nicotine dependence, cigarettes, uncomplicated; F11.20 Opioid dependence, uncomplicated; I10 Essential (primary) hypertension; R11.15 Cyclical vomiting syndrome unrelated to migraine; Z91.51 Personal history of suicidal behavior; Z71.6 Tobacco abuse counseling; Z88.0 Allergy status to penicillin; Z88.2 Allergy status to sulfonamides; Z79.899 Other long term (current) drug therapy
CPT/HCPCS: 36415; 73130; 80061; 81025; 82565; 82607; 82746; 83036; 83735; 84439; 84443; 93005